=== PATIENT | male | born 1925 | race Caucasian/White ===

== ENCOUNTER 2016-07-18 09:25 | Emergency (ER) | payer MEDICARE, BC ==
--- NOTE | ~2016-07-18 | ER ---
PATIENT'S NAME: [facility] AGE: 89 Y [address] ROOM: [place] [address] LOCATION: [facility] ADMIT DATE: 07/18/2016 ER/Outpatient Report DISCHARGE DATE: 07/18/2016 FAMILY PHYSICIAN: Manan Negron MD ATTENDING PHYSICIAN: Nilesh Skaggs Time of Arrival: Time of Evaluation: Admission date and time documented in the medical record. I saw the patient at 0935 hours. CHIEF COMPLAINT: Right wrist swelling and pain. HISTORY OF PRESENT ILLNESS: The patient is an 89-year-old male, who has had a 3 to 4-day history of swelling in his right wrist that started. He aggravated it more yesterday and now it is quite painful. Denies any fever, chills, or sweats. No recent coughs, colds, or flus. No history of gout. Does have a history of degenerative osteoarthritis. He has no other joint pain or problems. No chest pain, or shortness of breath. No abdominal pain, nausea, vomiting, or diarrhea. HOME MEDICATIONS: See attached medication list. ALLERGIES: NONE. SOCIAL HISTORY: The patient is a nonsmoker since 1951, does chew tobacco. Drinks 1 to 2 beers daily. SIGNIFICANT PAST MEDICAL HISTORY: 1. Tobacco abuse. 2. Peptic ulcer disease. 3. COPD. 4. Hypertension. 5. Diverticulosis. 6. Diverticulitis. 7. Gastroesophageal reflux. 8. Colon cancer. 9. Metastatic prostate cancer. PAST SURGICAL HISTORY: Operations: PATIENT'S NAME: [facility] AGE: 89 Y [address] ROOM: [place] [address] LOCATION: [facility] ADMIT DATE: 07/18/2016 ER/Outpatient Report DISCHARGE DATE: 07/18/2016 FAMILY PHYSICIAN: Manan Ngeron MD ATTENDING PHYSICIAN: Nilesh Skaggs 1. Right colectomy. 2. Hemorrhoidectomy. 3. Appendectomy. 4. Tonsillectomy. REVIEW OF SYSTEMS: All systems reviewed by me are negative with the exception of those discussed in the History of the Present Illness. PHYSICAL EXAMINATION: VITAL SIGNS: Temperature 98.3, tympanic; pulse 75; respiratory rate 24; blood pressure 133/64; and O2 saturation on room air is 92%. MUSCULOSKELETAL: On examination of the right wrist, the wrist is swollen, is not inflamed. Range of motion of his fingers is restricted because of the pain. NEUROLOGIC: Neurovascularly intact. Pulse intact. No open wounds. No abrasions. No ulcerations. Very tender with any type of movement. LABORATORY DATA AND IMAGING STUDIES: X-ray shows calcinosis. No acute fracture or dislocation. We will review x- ray with the radiologist. EMERGENCY DEPARTMENT COURSE: I did give the patient Toradol 60 mg IM in the emergency room, and Solu-Medrol 125 mg IM in the emergency room. Did discuss the patient with Dr. Reece, orthopedic surgeon, who was down here in the emergency department. Dr. Reece did see the patient. See Dr. Reece's dictation. IMPRESSION: Right wrist pain, inflammatory etiology, evidence of chondrocalcinosis of the wrist, no fracture on x-ray. PLAN: The patient was placed in a cock-up wrist splint. Discharged from the emergency room. Ice, elevation, and keep the splint on at all times. Medrol Dosepak take as directed. Continue other present home medications and care. Follow up with Dr. Reece in 2 days or sooner if needed. See personal physician as needed. Discussion ensued with the patient and his son regarding my findings and recommendations, they understand. NILESH SKAGGS MD PATIENT'S NAME: TOBI ZAZUETA [facility] AGE: 89 Y [address] ROOM: [place], [place] [address] LOCATION: ED ADMIT DATE: 07/18/2016 ER/Outpatient Report DISCHARGE DATE: 07/18/2016 FAMILY PHYSICIAN: Manan Negron MD ATTENDING PHYSICIAN: Nilesh Skaggs/modl /[id number] d: 07/18/16 1344 t: 07/19/16 0651, OUTPATIENT REPORT
--- NOTE | ~2016-07-18 | CON ---
PATIENT'S NAME: TOBI SORTO [facility] AGE: 89 Y [address] ROOM: [place] [address] LOCATION: [facility] ADMIT DATE: 07/18/2016 Consultation DISCHARGE DATE: 07/18/2016 FAMILY PHYSICIAN: Manan Negron MD ATTENDING PHYSICIAN: Joao Smith DATE OF CONSULTATION: 07/18/2016 REFERRING PHYSICIAN: Garret Reece MD HISTORY OF PRESENT ILLNESS: Mr. Sorto is an 89-year-old male, who presented to the emergency room with a chief complaint of right wrist pain. Dr. Smith has requested that I consult on the patient. The patient states that he has no history of right wrist pain prior to experiencing the insidious onset of wrist pain and swelling 3 days ago. The patient's son states that "he has continued to do things that he should not do" (including cutting down evergreen trees) despite the wrist pain and swelling. The patient denies history of prior wrist discomfort or dysfunction. He denies history of recent infection of any sort. Pain is localized diffusely (throughout the wrist). He has attempted to control his discomfort with an unspecified topical analgesic (provided by his son). This helped somewhat, but not enough. Pain has continued to escalate despite this. He denies fevers or chills. He denies history of infection of any sort. Despite the fact that there is pain throughout the wrist, his most severe pain is localized to the ulnar aspect of the wrist. ACTIVE MEDICAL PROBLEMS: History of prostate cancer. PRESENT MEDICATIONS: Prednisone (5 mg per day). He states that he is taking this because of his prostate cancer. ACTIVE MEDICAL PROBLEMS: History of peptic ulcer disease. He states that he has no history of associated gastrointestinal hemorrhage. He states that he had a lesion of his right proximal forearm "frozen off" at the [facility] a week and a half ago. He states he developed no evidence of infection at the site of the lesion. He has no history of prior surgery on the right wrist. He is taking no pills for the right wrist. PATIENT'S NAME: TOBI SORTO [facility] AGE: 89 Y [address] ROOM: [place] [address] LOCATION: [facility] ADMIT DATE: 07/18/2016 Consultation DISCHARGE DATE: 07/18/2016 FAMILY PHYSICIAN: Manan Negron MD ATTENDING PHYSICIAN: Joao Smith PHYSICAL EXAMINATION: GENERAL: Alert, oriented, well-hydrated, well-nourished, stoic gentleman, who is accompanied by his son. The patient liberally uses profanity including stating, "it is getting worse just sitting here and (f'ing) talking to you." EXTREMITIES: There are no active skin lesions or masses at the right wrist. There was moderate generalized swelling at the wrist, but no erythema or abnormal warmth. There is significant focal tenderness surrounding the wrist. 2+ radial pulse. Sensation to light touch and capillary refill are normal throughout the right hand. RADIOGRAPHS: Right wrist radiographs demonstrate extensive calcification of the radial artery. There is approximately 50% radial carpal joint space narrowing. There is no fracture. There was extensive chondrocalcinosis at the TFCC region. LABORATORY DATA: Erythrocyte sedimentation rate was ordered, but is not available due to the fact that the lab is not presently able to process this. His C-reactive protein level is moderately elevated (slightly over 2). Uric acid level was reportedly normal. IMPRESSION: Pseudogout attack, right wrist, superimposed upon moderately severe right wrist degenerative joint disease. Potential evolving septic arthritis. RECOMMENDATIONS: Medrol Dosepak, ice, elevation, and immobilization. I have asked for the patient to follow up with me in 48 hours. I have asked that he return to be evaluated sooner if pain continues to escalate despite the above specified intervention. He understands that we would consider aspirating the wrist (and potentially injecting the wrist with cortisone) if symptoms continued to escalate. MD APRIL JERNIGAN/abelino /[id number] d: 07/18/161806 t: 07/22/162221, CONSULTATION REPORT
[~2016-07-18 09:25] MED LIST: CORTEF10 MG PO; CYCLOBENZAPRINE5 MG PO; NORCO 5-325 MG1 TAB PO; PREDNISONE5 MG PO; PROTONIX40 MG PO; SPIRONOLACTONE25 MG PO; ULTRAM50 MG PO; ZYTIGA250 MG PO
[2016-07-18 10:07] LABS: BASOPHIL # 0.1 K/uL (0.0-0.2); EOSINOPHIL # 0.2 K/uL (0.0-0.5); EOSINOPHIL % 2.1 %; HEMATOCRIT 35.2 % (33.0-50.0); HEMOGLOBIN 11.5 g/dL (11.0-16.0); IMMATURE GRANULOCYTE % 0.3 %; LYMPHOCYTE % 34.8 %; MCH 27.8 pg (27.0-34.0); MCHC 32.7 gm/dL (32.0-36.5); MONOCYTE % 8.7 %; MPV 9.4 fl (9.4-12.4); NEUTROPHIL # (ANC) 6.1 K/uL (1.4-9.0); NEUTROPHIL % 53.1 %; NRBC % 0 /100WBC (0-0.00); PLATELET COUNT 204 K/uL (150-450); RBC 4.14 M/uL (3.50-5.50); RDW-CV 16.8 % (11.9-14.6); WBC 11.5 K/uL (4.0-11.0)
[2016-07-18 10:14] LABS: INR - (THERAPEUTIC) 0.95 (0.92-1.07)
[2016-07-18 10:25] LABS: ALBUMIN 2.9 gm/dL (3.5-5.0); ALK PHOS 49 IU/L (33-138); ALT 12 IU/L (12-78); ANION GAP 15.4 (10.0-19.0); AST 13 IU/L (10-40); BLOOD UREA NITROGEN 8 mg/dL (6-24); CALCIUM 7.7 mg/dL (8.5-10.5); CHLORIDE 104 mMol/L (96-110); CO2 24 mMol/L (22-32); CREATININE 0.9 mg/dL (0.6-1.3); ESTIMATED GFR (MDRD EQUATION) > 60; POTASSIUM 3.4 mMol/L (3.7-5.1); SODIUM 140 mMol/L (135-145); TOTAL BILIRUBIN 0.5 mg/dL (0.0-1.5); TOTAL PROTEIN 5.9 g/dL (6.0-8.4)
== END 2016-07-18 11:51 | disposition disaster alternative care site (69) ==
LOC: GMED 09:25
PROVIDERS: Emergency Medicine
PROC: 2W3CX1Z Immobilization of Right Lower Arm using Splint (ICD-10-PCS; principal; 2016-07-18)
DX: M19.031 Primary osteoarthritis, right wrist (principal); M11.231 Other chondrocalcinosis, right wrist; F17.220 Nicotine dependence, chewing tobacco, uncomplicated; C79.82 Secondary malignant neoplasm of genital organs; I10 Essential (primary) hypertension; J44.9 Chronic obstructive pulmonary disease, unspecified; K21.9 Gastro-esophageal reflux disease without esophagitis; Z90.89 Acquired absence of other organs; Z90.49 Acquired absence of other specified parts of digestive tract; Z85.038 Personal history of other malignant neoplasm of large intestine; Z87.11 Personal history of peptic ulcer disease; Z87.19 Personal history of other diseases of the digestive system; Z79.899 Other long term (current) drug therapy
CPT/HCPCS: J1885; J2930

== ENCOUNTER 2016-08-04 22:22 | Emergency (ER) | payer MEDICARE, BC ==
--- NOTE | ~2016-08-04 | ER ---
PATIENT'S NAME: [facility] AGE: 89 Y [address] ROOM: [place] [address] LOCATION: [facility] ADMIT DATE: 08/04/2016 ER/Outpatient Report DISCHARGE DATE: 08/04/2016 FAMILY PHYSICIAN: Manan Negron MD ATTENDING PHYSICIAN: Joao Smith Time of Arrival: Time of Evaluation: Admission date and time documented in the medical record. I saw the patient at 2240 hours. CHIEF COMPLAINT: Left arm pain, shoulder pain. HISTORY OF PRESENT ILLNESS: The patient is an 89-year-old male, who got an injection in his left deltoid muscle, his upper arm about 6 days ago. Since that time he has had pain in the area of injection, radiated up into his shoulder and lateral left neck. No other complaints. No fever, chills, or sweats. No recent coughs, colds, or flus. HOME MEDICATIONS: See attached medication list. ALLERGIES: NONE. SOCIAL HISTORY: Nonsmoker. Does chew tobacco. Drinks alcohol daily. SIGNIFICANT PAST MEDICAL HISTORY: 1. Hypertension. 2. COPD. 3. Peptic ulcer disease. 4. Tobacco and alcohol abuse. 5. Diverticulosis. 6. Diverticulitis. 7. Gastroesophageal reflux. 8. Colon cancer. 9. Metastatic prostate cancer. PAST SURGICAL HISTORY: Operations: 1. Right colectomy. 2. Hemorrhoidectomy. 3. Appendectomy. PATIENT'S NAME: [facility] AGE: 89 Y [address] ROOM: [place] [address] LOCATION: [facility] ADMIT DATE: 08/04/2016 ER/Outpatient Report DISCHARGE DATE: 08/04/2016 FAMILY PHYSICIAN: Manan Negron MD ATTENDING PHYSICIAN: Joao Smith 4. Tonsillectomy. REVIEW OF SYSTEMS: All systems reviewed by me are negative with the exception of those discussed in the History of the Present Illness. PHYSICAL EXAMINATION: VITAL SIGNS: Temperature is 98.8, pulse 89, respiratory rate is 20, blood pressure 144/65, and O2 saturation on room air is 92%. MUSCULOSKELETAL: On examination of the left arm, he has tenderness over the injection site that I can see there is ecchymosis. No swelling. No redness. No red streaking. He has pain throughout the deltoid muscle and pretty much into the left trapezius muscle to the lateral aspect of his left neck. Also, has some tenderness in the posterior scapular area and trapezius muscle extending into the inner aspect of his scapula. Range of motion of the elbow, wrist, and fingers are intact. He has good range of motion, flexion, and extension, but abduction causes pain. NEUROLOGIC: Neurovascularly intact. Pulse intact. No open wounds. IMPRESSION: Left deltoid pain, left trapezius muscle pain. PLAN: The patient was given Valium 5 mg, and morphine 4 mg IM in the emergency room. Discharged to home. Observation. Activity as tolerated. Heat to sore areas x30 minutes 4 times a day. Continue home medications and care. Flexeril 10 mg 3 times a day, #30; and [place] 7.5/325 as needed for pain every 6 hours, #16. Follow up with personal physician in 2 to 3 days. Discussion ensued with the patient concerning my findings and recommendations, he understands. MD LAURA RAYMOND/modl /[id number] d: 08/05/16 0120 t: 08/05/16 1822, OUTPATIENT REPORT
== END 2016-08-04 23:31 | disposition disaster alternative care site (69) ==
LOC: GMED 22:22
DX: M25.512 Pain in left shoulder (principal); I10 Essential (primary) hypertension; J44.9 Chronic obstructive pulmonary disease, unspecified; K57.92 Diverticulitis of intestine, part unspecified, without perforation or abscess without bleeding; K57.90 Diverticulosis of intestine, part unspecified, without perforation or abscess without bleeding; Z90.49 Acquired absence of other specified parts of digestive tract; Z98.890 Other specified postprocedural states
CPT/HCPCS: J2270; J3360

== ENCOUNTER → 2016-09-07 | Outpatient (CLI) | payer MEDICARE, BC ==
[~2016-09-07] MED LIST changes: +ADVIL200 MG PO; +ASPIRIN LO-DOSE81 MG PO; +BENGAY/ICY HOT/30 GM TOP; +BRILINTA90 MG; +CELEBREX200 MG PO; +CIPRO500 MG PO; +COREG 3.1253.125 MG PO; +CRESTOR10 MG; +DYAZIDE 37.5-21 EACH; +FLAGYL250 MG; +FLEXERIL10 MG; +LASIX20 MG PO; +LOPRESSOR25 MG; +PLAVIX75 MG PO; +PRINIVIL (ZESTRI5 MG PO; +VASOTEC2.5 MG
== END | disposition disaster alternative care site (69) ==
LOC: LELM 12:05
PROVIDERS: Family Medicine
DX: R07.9 Chest pain, unspecified (principal); R06.02 Shortness of breath; R11.2 Nausea with vomiting, unspecified

== ENCOUNTER 2016-09-08 12:30 | Inpatient (IN) | payer MEDICARE, BC ==
[~2016-09-08] VITALS: Ht 175.3 cm; Wt 72.6 kg
--- NOTE | ~2016-09-08 | DS ---
PATIENT'S NAME: TOBI ZAZUETA [facility] AGE: 89 Y [address] ROOM: [id number] [place] [address] LOCATION: [facility] ADMIT DATE: 09/08/2016 Discharge Summary DISCHARGE DATE: 09/10/2016 FAMILY PHYSICIAN: Karan Negron MD ATTENDING PHYSICIAN: Karan Negron Tobi entered the hospital after a 24-hour period of time. It took us to convince him that he needed to go to the hospital and was evaluated by Dr. Chao with rising cardiac enzymes and in addition I started him on ciprofloxacin and Flagyl orally to control his sudden onset of acute diverticulitis per CT scan. Tobi also had been suffering from elevated cardiac enzymes for the past 48 hours, however, Tobi was not complaining of chest pain or shortness of breath. May be some arthritic stiffness he says, but not having any trouble with his chest. Despite the fact, we were all very concerned about his rather elevated cardiac enzymes and Dr. Chao felt that a heart cath was definitely in order. So, on the second hospitalized day, Tobi did undergo heart cath and we have had a stent in his circumflex artery. Of course, Tobi did not have any trouble recovering because as he said that he did not have any trouble with his chest before. His abdomen seemed to bother him that lasted during the course of the hospitalization. He began to eat and drink a little, get up and move around, and as usual give the nursing staff more than a difficult time. Upon my arrival on the third day, he was up with his clothes on, on the chair, and proclaim that he is ready to go home, which I believe he was ready to go home. Of course, we will need to continue treating the diverticulitis, which I think according to the breakfast he ate appears that he is gaining on. Should tolerate the heart cath relatively well since according to Tobi he was not having any chest difficulties start with. He will be on I think Brilinta and aspirin and will likely have some statin, which we will carefully adjust. We will see Tobi in the office frequently and we will continue to do so. 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 I said "no" at this weekend. 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 FINAL DIAGNOSES: Acute diverticulitis and also obvious silent myocardial infarction with heart cath and stenting I believe in a circumflex artery. PATIENT'S NAME: TOBI ZAZUETA [facility] AGE: 89 Y [address] ROOM: [id number] [place] [id number] LOCATION: [facility] ADMIT DATE: 09/08/2016 Discharge Summary DISCHARGE DATE: 09/10/2016 FAMILY PHYSICIAN: Karan Negron MD ATTENDING PHYSICIAN: Karan Negron The patient is going home in a great condition and we will follow him frequently in the office. KARAN NEGRON MD JUSAMA/modl /[id number] d: 09/11/161951 t: 09/16/16 1138, DISCHARGE SUMMARY
--- NOTE | ~2016-09-08 | CATH ---
Cardiac Diagnostic + PCI Report Demographics Patient Name CARLITA Graves Gender Male Date of 1925 Age 89 year(s) Patient Number [id number] Date of Study 09/09/2016 Visit Number [id number] Room Number [address] [place] [id number] Ht 175.26 cm Wt 72.12 kg Referring Jamil Bunch MD Primary Physician Physician Performing [facility] Secondary Physician Physician [place] Diagnostic [facility] Assisting Physician Physician [place] Interventional [facility] Physician Tour Operator Physician [place] Findings and Conclusions Diagnostic Findings and Conclusion Two vessel CAD. OM1 occluded 100% with left to left collateral. Proximal Circ 70% calcified. Diagnostic Recommendations PCI of OM1 and Circ Interventional Findings and Conclusion Unable to wire into the OM with three separate wires, wire with balloon support and supercross 90 degree catheter. 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 Interventional Recommendations 1) S/P PCI of proximal Circ with AARON 2) Given advanced age and comorbidities, medical therapy best option for OM branch disease. Procedure Description The patient was brought to the diagnostic cardiac catheterization-EP laboratory in the fasting, non-sedated state. Informed consent was obtained in the written and verbal form after the risks and benefits were explained. The patient had no further questions and agreed to proceed. The planned puncture-incision site(s) were shaved and prepped with ChloraPrep and draped in the usual sterile manner. Conscious sedation, supplemental oxygen, and pain control medications were delivered by a registered nurse under physician guidance. Surface ECG rhythm, blood pressure measurement, and pulse oximetry were monitored throughout the procedure. Arterial access. The access site was infiltrated with lidocaine. The vessel was entered with the Seldinger technique. A sheath was advanced into the vessel and used for catheter placement. Selective left coronary angiography. A catheter was advanced into the left coronary vessel ostium under Fluoroscopic guidance. Contrast was injected by hand. Images were obtained in multiple projections. Selective right coronary angiography. A catheter was advanced into the right coronary vessel ostium under fluoroscopic guidance. Contrast was injected by hand. Images were obtained in multiple projections. Left heart catheterization. A catheter was advanced across the aortic valve to the left ventricle under fluoroscopic guidance. Resting hemodynamics were obtained. Angioplasty and Stent Placement: A guiding catheter was used to intubate the vessel. A 0.14 wire was then used to cross the lesion. A balloon catheter was placed across the lesion and inflated. The balloon catheter was then removed. A Drug Eluting Stent was placed and inflated. Post placement angiograms were performed. Arterial artery hemostasis was achieved. The patient was transferred to a regular nursing floor via cart accompanied by a nurse. The patient left the laboratory in stable condition. Diagnostic Cath Status: Urgent Interventional Cath Status: Urgent Procedure Procedure Type Diagnostic procedure:Angiography:, Coronary Angios w/[facility] PCI procedure:Drug Eluting Coronary Stent:, CFX, PTCA:, CFX Indications: Elevated cardiac enzymes and Non-ST elevation MO. The procedure was explained in detail to the patient. Risks, complications and alternative treatments were reviewed. Written consent was obtained. Medications Reviewed with Patient prior to Procedure. Angiographic Findings Dominance: Left Cardiac Arteries and Lesion Findings LMCA: Normal (0% Stenosis). LAD: Abnormal.The 1st Diag appears abnormal. Lesion on Prox LAD: 30% stenosis . Lesion on Mid LAD: 40% stenosis . Lesion on 1st Diag: Ostial.40% stenosis . LCx: Abnormal.The 1st ob Sofi appears abnormal. Lesion on 1st Ob Sofi: Ostial.100% stenosis reduced to 100%. Pre procedure PAUL 0 flow was noted. Post Procedure PAUL 0 flow was present. The guidewire cross was unsuccessful.The lesion was diagnosed as a high risk lesion.Chronic total occlusion. Comments:Left to left collaterals Devices used - Whisper Wire .014 x 190. Number of passes: 1. Lesion on Prox CX: 70% stenosis 12 mm length reduced to 0%. Pre procedure PAUL III flow was noted. Post Procedure PAUL III flow was present. The guidewire cross was successful.The lesion was diagnosed as a high risk lesion.The lesion was heavily calcified.Culprit lesion. Devices used - Runthrough NS .014 x 180. Number of passes: 1. - Fielder XT 190 cm. Number of passes: 1. - Emerge Balloon 2.0 x 15. 1 inflation(s) to a max pressure of: 16 melany. - Whisper Wire .014 x 190. Number of passes: 1. - Emerge Balloon 3.0 x 15. 3 inflation(s) to a max pressure of: 14 melany. - Promus Premier 3.0 x 20 Stent. 2 inflation(s) to a max pressure of: 14 melany. - NC Emerge Balloon 3.0 x 15. 1 inflation(s) to a max pressure of: 24 melany. RCA: Abnormal.The R PDA appears normal. Lesion on Prox RCA: 30% stenosis . Ramus: Normal (0% Stenosis). Cardiac Collaterals - Goodcollateral flow from the Mid LAD to the 1st Ob Sofi. Coronary Tree Procedure Data Procedure Date Date: 09/09/2016Start: 08:15 AM Entry Locations - Retrograde Percutaneous access was performed through the Right Radial artery (Primary location). A 6 Fr sheath was inserted. Unsuccessful closure attempt was performed using: an R band. Hemostasis was successfully obtained using Mechanical Compression. Closure Comments: 16ml air in band. Procedure Medications Order and Administration + + + + + !Time !Medication !Dosage !Route ! + + + + + !09/09/2016 08:13 !Fentanyl !25 mcg !I.V. ! !AM ! ! ! ! + + + + + !09/09/2016 08:20 !Radial Verapamil !2.5 mg !I.A. ! !AM ! ! ! ! + + + + + !09/09/2016 08:21 !Heparin (ACC_3) ! !I.V. drip ! !AM ! ! ! ! + + + + + !09/09/2016 08:21 !Heparin (ACC_3) !2000 units !I.V. drip ! !AM ! ! ! ! + + + + + !09/09/2016 08:30 !Fentanyl !25 mcg !I.V. ! !AM ! ! ! ! + + + + + !09/09/2016 08:38 !Angiomax (Bivalirudin) !55 mg !I.V. bolus ! !AM !(ACC_5) ! ! ! + + + + + !09/09/2016 08:39 !Angiomax (Bivalirudin) !1.75 mg/kg/hr!I.V. drip ! !AM !(ACC_5) ! ! ! + + + + + !09/09/2016 08:42 !Versed !0.5 mg !I.V. ! !AM ! ! ! ! + + + + + !09/09/2016 08:47 !Oxygen !2 l/min !NC ! !AM ! ! ! ! + + + + + !09/09/2016 08:48 !Oxygen !4 l/min !NC ! !AM ! ! ! ! + + + + + !09/09/2016 09:00 !Oxygen !2 l/min !NC ! !AM ! ! ! ! + + + + + !09/09/2016 09:16 !0.9% NaCl !75 ml/hr !I.V. drip ! !AM ! ! ! ! + + + + + !09/09/2016 09:16 !D5 0.45% NaCl ! !I.V. drip ! !AM ! ! ! ! + + + + + !09/09/2016 09:19 !Oxygen ! !NC ! !AM ! ! ! ! + + + + + !09/09/2016 09:19 !Brilinta (Ticagrelor) !180 mg !P.O. ! !AM !(ACC_20) ! ! ! + + + + + Devices Used - A5 Fr. BS JR 4 Diag. Catheterwas used for:Right coronary angiography. - A5 Fr. BS JL 3.5 Diag. Catheterwas used for:Was not used. - A6 Fr. EBU 3.5 Guide Catheterwas used for:Left coronary angiography. Contrast Material - Isovue [id number] ml Fluoroscopy Time: Diagnostic: 24:12 minutes. Total: 24:12 minutes. Fluoroscopy Dose: Diagnostic: 2803 mGy. Total: 2803 mGy. Estimated Blood Loss: 15 ml. Additional [facility] PCI Information PCI Indication:PCI for high risk Non-STEMI or unstable angina. Medical History Performed Procedures and Imaging Results - No [facility] stress or imaging studies were performed. Allergies - Contrast. - Tomatoes and tomato products. - Other:(pea). Risk Factors The patient risk factors include:hypertension, chronic lung disease, last creatinine: 0.9 mg/dl and creatinine clearance: 56.76 ml/min. Admission Data Admission Date: 09/08/2016 Admission Time: 02:00 PM Admit Source: Emergency department Insurance Payors: Medicare. Admission Medications + +------+------+ + + + + !Medication !Dosage!Times !Last !Last !Administered !Comments ! ! ! !Per !Delivery !Delivery ! ! ! ! ! !Day !Date !Time ! ! ! + +------+------+ + + + + !Aspirin ! ! ! ! !Yes ! ! !(any) ! ! ! ! ! ! ! + +------+------+ + + + + !Beta ! ! ! ! !Yes ! ! !Dayanna ! ! ! ! ! ! ! !(any) ! ! ! ! ! ! ! + +------+------+ + + + + Clinical Evaluation Leading to Procedure - The patient's CAD presentation was assessed as: Non-STEMI. - The patient's anginal syndrome during the past two weeks was assessed as: Class IV according to the [place] Cardiovascular Society Classification System (CCS). Anti-anginal medications were prescribed during the past two weeks. The medication is: Beta Blockers. - The patient has been in a state of heart failure within the past two weeks. - The patient's heart failure status was assessed as NYHA Class II. Hemodynamics Condition: Rest O2 Consumption: Estimated: 216.78Heart Rate: 78 bpm Pressures (mmHg) +-----+ + !Site !Pressure ! +-----+ + !LV !122/5 ,11 ! +-----+ + !LV !124/6 ,16 ! +-----+ + !AO !119/45 (77) ! +-----+ + !LV !118/7 ,13 ! +-----+ + Valve Gradients and Areas + +---------+---------+---------+ +---------+ + !Valve !Peak !Mean !Area !Index !Flow !Source ! + +---------+---------+---------+ +---------+ + !Aortic !6 !11 ! ! ! ! ! + +---------+---------+---------+ +---------+ + !Aortic !6 !11 ! ! ! ! ! + +---------+---------+---------+ +---------+ + Shunts Oxygen Values O2 Capacity 137.36 O2 Consumption 216.78 Discharge Data Discharge Date: 09/10/2016 Hospital Status: Inpatient Signatures dtt: ANN [place] dtd: 09/09/16 0815 Physician Self Edit
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
--- NOTE | ~2016-09-08 | HP ---
PATIENT'S NAME: TOBI SORTO [facility] AGE: 89 Y [address] ROOM: [id number] [place], [place] [address] LOCATION: GPCU ADMIT DATE: 09/08/2016 History & Physical DISCHARGE DATE: 09/10/2016 FAMILY PHYSICIAN: Manan Negron MD ATTENDING PHYSICIAN: Manan Negron CORRECTED COPY: ACCOUNT NUMBER. 10/14/2016 - BC. DATE OF SERVICE: HISTORY OF PRESENT ILLNESS: Tobi was admitted to the hospital on 09/10 after having a 36-hour episode of shortness of breath and some abdominal discomfort. The abdominal discomfort was diagnosed with a CT scan of him having acute diverticulitis and the chest pain. The shortness of breath was evaluated with cardiac enzymes at [facility] on the with obvious elevation of his cardiac enzymes. Tobi returned to the Clinic the next day after we were unable to locate him the first afternoon when we noted his enzymes were going up. I finally got a hold of him in the evening, and he stated that he did not have any chest problems and that his abdomen was feeling better. I told him that I was very concerned, and then I wanted to see him again in the morning. So, the next morning, he came to the Clinic. We re-evaluated his cardiac enzymes and they were continuing to go up. I indicated to him that he did have acute diverticulitis, which he has had before. I was glad that he was feeling better, but because of the difficulties with the cardiac enzymes, without frightening him, I told him that it was best for him to be in the hospital. So, we are admitting him finally at this time, approximately 24 hours after he first presented with the symptoms, but of course this time, he says he does not have any chest pain and does not have any shortness of breath. No cough. He says he feels good. However, with the enzymes rising, he will certainly need evaluation. 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 I always referred to him as the godfather of [place] because he has a large family related to a large number of individuals in the neighborhood, and he certainly does his best to be a great ambassador for the area. He is an extremely energetic fellow whom I always enjoy seeing. He has a great work ethic. 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 Tobi is one of my favorite patients, and I like his attitude. In addition to the above mentioned things, Tobi has been dealing with prostate cancer for approximately the last five or six years, and seems somehow not to have limited his lifestyle or his length to any degree. Last year, he had an abdominal episode, and we found colon cancer which was resected and supposedly "it was completely resected." We have followed up on this frequently, and we have not found any recurrence. Tobi goes on about his life without worrying PATIENT'S NAME: TOBI SORTO [facility] AGE: 89 Y [address] ROOM: [place] [address] [facility] ADMIT DATE: 09/08/2016 History & Physical DISCHARGE DATE: 09/10/2016 FAMILY PHYSICIAN: Manan Negron MD ATTENDING PHYSICIAN: Manan Negron about either one. CURRENT MEDICATIONS: As per the chart. SOCIAL HISTORY: Of course, Tobi lives at home, and the probably biggest concern I have is him being in charge of his own nutrition. I think that he eats a lot of frozen pizzas and cereal, and occasionally a beer too in the evening. He generally enjoys himself, and enjoys his sons who live in the farmyard and then also a son who lives nearby in [place]. He has a daughter I think also in [place], all of whom keep in touch, but on the other hand, they cannot allow him to do as he pleases which that is the only way it would work. He, in the past, has gone to the [place] for some things, but in the last couple of years, I have noticed that most of his medical care centers are in my office and/or [place] physicians. PHYSICAL EXAMINATION: VITAL SIGNS: Tobi entered the hospital at this time with vital signs of weight of 167, O2 saturations of 94, temperature of 98, blood pressure of 92/40, and pulse of 100. GENERAL: He is still eating and drinking at this particular time, not complaining of any chest discomfort, although he says he has some abdominal discomfort. HEENT: Head: Inspection reveals a normocephalic male with rather dark skin. He has still some grayish-white hair covering his entire head. He does not wear glasses. Dentition is rather poor, although it is his own. Eyes: Extraocular muscles are intact. Pupils are equally round and reactive to light. Nasal mucosa was healthy pink in appearance. Tympanic membranes were viewed unobstructed. Posterior pharynx was clear. As noted, dentition is poor. Oral cavity was clear. NECK: The neck region, his carotids are auscultated and transmitted, but no bruits were noted. There are no apparent masses present on palpation. LUNGS: On auscultation, the patient had some scattered wheezing especially in the bases and also some rales on the left base. CARDIAC: Heart sounds are irregularly irregular, has a probable systolic murmur. Heart rate is elevated at 100. ABDOMEN: The patient's abdomen is flat in contour. He has a few bowel sounds. He is tender more than anything in the lower confines of his abdomen, and perhaps, the left upper quadrant to some extent. PELVIC: Not examined. RECTAL: Not examined. EXTREMITIES: No excessive peripheral circulation. Extremities are warm and dry. PATIENT'S NAME: TOBI SORTO [facility] AGE: 89 Y [address] ROOM: [address] [address] [facility] ADMIT DATE: 09/08/2016 History & Physical DISCHARGE DATE: 09/10/2016 FAMILY PHYSICIAN: Manan Negron MD ATTENDING PHYSICIAN: Manan Negron IMPRESSION: The impression is that of rising cardiac enzymes, suspect myocardial infarction and acute diverticulitis. PLAN: To continue IV antibiotics for his acute diverticulitis. I have involved Dr. Chao for Tobi's cardiac condition, and I assume that we will get an echo and probably a heart catheterization soon with possible stenting procedure. Appropriate fluid therapy, adjustment of his current medications, bedrest, and appropriate hydration and appropriate bowel care with a non-roughage diet and keep it soft for now. We will monitor his other problems as time goes along. The good news is that Tobi does not appear to be in any acute danger, even though his cardiac enzymes are significantly rising. MD THADDEUS HENDRICKSON/abelino /[id number] CORRECTED COPY: ACCOUNT NUMBER. 10/14/2016 - BC. D: [id number] T: [id number] HISTORY & PHYSICAL
--- NOTE | ~2016-09-08 | ECHO ---
Transthoracic Echocardiography Report (TTE) Demographics Patient Name TOBI ZAZUETA Date of Study 09/08/2016 Patient Number [id number] Visit Number [id number] Date of 1925 Room Number G6328 Accession Number [id number] Gender Male Age 89 year(s) Referring Jamil Bunch MD Dog Warden Kalani Joya RVT, Physician RDEZRA Physician Interpreting Horacio Juarez Sales Training Coordinator Physician MD Supervising Ordering Physician Horacio Juarez MD/MLP Nurse Stress Fibrous Wallboard Inspector Conclusions Contractility Score Summary Normal Left Ventricular contractility was noted. Summary Technically difficult exam. Normal LV/RV size and systolic function. The estimated left ventricular ejection fraction is 55-60%. Mild concentric left ventricular hypertrophy. Diastolic assessment reveals Grade I diastolic dysfunction. The right atrium is mildly dilated. No significant valvular abnormalities. Procedure Type of Study TTE procedure:2D Echocardiogram. Procedure Date Date: 09/08/2016 Start: 01:04 PM Study Location: Inpatient Portable Technical Quality: Limited visualization due to poor acoustical window. Indications:Chest pain and elevated cardiac enzymes. Appropriate Use Criteria: 8 Patient Status: STAT HR: 92 bpm BP: 136/65 mmHg M-Mode/2D Measurements LV Diastolic Dimension: 4.82 cm LV Systolic Dimension: 3.17 cm LV Septum Diastolic: 1.2 cm LV PW Diastolic: 1.13 cm AO Root Dimension: 2.8 cm Cardiac Output: 3.78 l/min AV Cusp Separation: 1.4 cm RV Diastolic Dimension: 3.03 cm LA volume: 53 ml LVOT: 2.2 cm RV Base: 3.83 cm LVOT VTI: 10.8 cm RV Mid: 3.18 cm LV Stroke volume: 41.03 ml TAPSE: 3 cm TDI-S': 10.4 cm/s Doppler Measurements AV Peak Velocity: 1.02 m/s MV Peak E-Wave: 0.52 m/s AV Peak Gradient: 4.16 mmHg MV Peak A-Wave: 0.76 m/s AV Mean Gradient: 3 mmHg MV E/A Ratio: 0.69 LVOT Peak Velocity: 0.55 m/s MV P1/2t: 71 msec TR Gradient:29.16 mmHg PV Peak Velocity: 0.96 m/s Estimated RAP:5 mmHg PV Peak Gradient: 3.66 mmHg Estimated RVSP: 34 mmHg Estimated PASP: 34.16 mmHg E' Septal Velocity: 0.04 m/s A' Septal Velocity: 0.09 m/s E' Lateral Velocity: 0.06 m/s A' Lateral Velocity: 0.09 m/s Findings Left Ventricle Mild concentric left ventricular hypertrophy. Diastolic assessment reveals Grade I diastolic dysfunction. Right Ventricle Normal right ventricle structure and function. Left Atrium Normal left atrial size. There is no evidence of patent foramen ovale or atrial septal defect by color Doppler. Right Atrium The right atrium is mildly dilated. No subcostal images to evaluate IVC. Mitral Valve Normal mitral valve structure and function. Aortic Valve Normal aortic valve structure and function. Tricuspid Valve Normal appearing tricuspid valve. Trivial tricuspid regurgitation by color Doppler. Pulmonic Valve Normal pulmonic valve structure and function. Pericardial Effusion No evidence of pericardial effusion. Epicardial fat pad noted. Miscellaneous Visualized portions of the aortic root and ascending aorta appear normal in size. Pleural Effusion No evidence of pleural effusion. Contractility Score LV regional wall motion:(0-Non visualized 1-Normal 2-Hypokinesis 3-Akinesis 4-Dyskinesis 5-Aneurysm) Signature dtt: ANITA DEL VALLE dtd: 09/08/16 1304 Physician Self Edit
[~2016-09-08 12:30] MED LIST changes: -ADVIL200 MG PO; -ASPIRIN LO-DOSE81 MG PO; -BENGAY/ICY HOT/30 GM TOP; -BRILINTA90 MG; -CELEBREX200 MG PO; -CIPRO500 MG PO; -COREG 3.1253.125 MG PO; -CRESTOR10 MG; -DYAZIDE 37.5-21 EACH; -FLAGYL250 MG; -FLEXERIL10 MG; -LASIX20 MG PO; -LOPRESSOR25 MG; -PLAVIX75 MG PO; -PRINIVIL (ZESTRI5 MG PO; -VASOTEC2.5 MG
[2016-09-08 13:40] LABS: BASOPHIL # 0.1 K/uL (0.0-0.2); BASOPHIL % 0.4 %; EOSINOPHIL % 0.2 %; HEMATOCRIT 34.7 % (33.0-50.0); HEMOGLOBIN 11.5 g/dL (11.0-16.0); IMMATURE GRANULOCYTE # 0.1 K/uL (0.0-0.3); IMMATURE GRANULOCYTE % 0.4 %; LYMPHOCYTE # 2.1 K/uL (0.8-4.0); LYMPHOCYTE % 13.2 %; MCH 28.2 pg (27.0-34.0); MCHC 33.1 gm/dL (32.0-36.5); MONOCYTE # 1.4 K/uL (0.0-1.0); MONOCYTE % 9.1 %; NEUTROPHIL # (ANC) 11.9 K/uL (1.4-9.0); NEUTROPHIL % 76.7 %; NRBC % 0 /100WBC (0-0.00); PLATELET COUNT 182 K/uL (150-450); RBC 4.08 M/uL (3.50-5.50); RDW-CV 16.5 % (11.9-14.6); WBC 15.6 K/uL (4.0-11.0)
[2016-09-08 14:02] LABS: ALBUMIN 2.7 gm/dL (3.5-5.0); ALK PHOS 52 IU/L (33-138); ALT 21 IU/L (12-78); ANION GAP 8.6 (10.0-19.0); AST 95 IU/L (10-40); BLOOD UREA NITROGEN 12 mg/dL (6-24); CALCIUM 7.9 mg/dL (8.5-10.5); CHLORIDE 106 mMol/L (96-110); CO2 27 mMol/L (22-32); CPK 504 IU/L (35-332); ESTIMATED GFR (MDRD EQUATION) > 60; POTASSIUM 3.6 mMol/L (3.7-5.1); SODIUM 138 mMol/L (135-145); TOTAL PROTEIN 6.1 g/dL (6.0-8.4)
[2016-09-08 14:07] LABS: INR - (THERAPEUTIC) 0.98 (0.92-1.07); PROTIME 10.3 SECONDS (9.8-11.4)
[2016-09-08 14:08] LABS: TOTAL BILIRUBIN 0.8 mg/dL (0.0-1.5)
[2016-09-08] MEDS ORDERED: ADVIL200 MG PO (15:05)
[2016-09-08 18:55] LABS: BILIRUBIN URINE NEGATIVE (NEGATIVE); BLOOD URINE NEGATIVE /UL (NEGATIVE); COLOR URINE YELLOW (YELLOW); GLUCOSE URINE NEGATIVE (NEGATIVE); KETONE URINE NEGATIVE (NEGATIVE); LEUKOCYTES URINE NEGATIVE /UL (NEGATIVE); NITRITE URINE NEGATIVE (NEGATIVE); PROTEIN URINE 30 mg/dL (NEGATIVE); TURBIDITY URINE CLEAR (CLEAR); UROBILINOGEN URINE 1 mg/dL (NORMAL)
[2016-09-08 19:06] LABS: BACTERIA URINE FEW (NEGATIVE); EPITHELIAL URINE 0-2 #/HPF (NEGATIVE); HYALINE CAST URINE 0-2 #/LPF (NEGATIVE); MUCUS URINE 1+ (NEGATIVE); RBC URINE NEGATIVE #/HPF (NEGATIVE); WBC URINE NEGATIVE #/HPF (NEGATIVE)
[2016-09-09 04:28] LABS: HEMATOCRIT 30.6 % (33.0-50.0); HEMOGLOBIN 10.1 g/dL (11.0-16.0); MCH 27.7 pg (27.0-34.0); MCV 83.8 fl (83.0-98.0); MPV 9.8 fl (9.4-12.4); PLATELET COUNT 176 K/uL (150-450); RBC 3.65 M/uL (3.50-5.50); RDW-CV 16.1 % (11.9-14.6); WBC 12.4 K/uL (4.0-11.0)
[2016-09-09 04:31] LABS: EOSINOPHIL # 0.1 K/uL (0.0-0.5); LYMPHOCYTE % 24.3 %; MONOCYTE # 1.1 K/uL (0.0-1.0); MONOCYTE % 9.1 %; NEUTROPHIL % 64.6 %; NRBC % 0 /100WBC (0-0.00)
[2016-09-09 04:32] LABS: BASOPHIL # 0.1 K/uL (0.0-0.2); BASOPHIL % 0.6 %; EOSINOPHIL % 1.1 %; IMMATURE GRANULOCYTE % 0.3 %
[2016-09-09 04:43] LABS: INR - (THERAPEUTIC) 1.01 (0.92-1.07); PROTIME 10.6 SECONDS (9.8-11.4); PTT 53 SECONDS (25-32)
[2016-09-09 04:49] LABS: ALBUMIN 2.2 gm/dL (3.5-5.0); ALK PHOS 49 IU/L (33-138); ALT 18 IU/L (12-78); ANION GAP 8.4 (10.0-19.0); AST 55 IU/L (10-40); BLOOD UREA NITROGEN 9 mg/dL (6-24); CHLORIDE 102 mMol/L (96-110); CO2 28 mMol/L (22-32); CREATININE 0.9 mg/dL (0.6-1.3); ESTIMATED GFR (MDRD EQUATION) > 60; POTASSIUM 3.4 mMol/L (3.7-5.1); SODIUM 135 mMol/L (135-145); TOTAL BILIRUBIN 0.8 mg/dL (0.0-1.5); TOTAL PROTEIN 5.4 g/dL (6.0-8.4)
[2016-09-10 05:01] LABS: BASOPHIL % 0.1 %; HEMATOCRIT 32.2 % (33.0-50.0); HEMOGLOBIN 10.9 g/dL (11.0-16.0); IMMATURE GRANULOCYTE # 0.1 K/uL (0.0-0.3); IMMATURE GRANULOCYTE % 0.5 %; LYMPHOCYTE # 1.2 K/uL (0.8-4.0); LYMPHOCYTE % 10.5 %; MCH 28.3 pg (27.0-34.0); MCHC 33.9 gm/dL (32.0-36.5); MCV 83.6 fl (83.0-98.0); MONOCYTE # 0.5 K/uL (0.0-1.0); MONOCYTE % 4.5 %; NEUTROPHIL # (ANC) 9.3 K/uL (1.4-9.0); NEUTROPHIL % 84.4 %; NRBC % 0 /100WBC (0-0.00); PLATELET COUNT 237 K/uL (150-450); RBC 3.85 M/uL (3.50-5.50); RDW-CV 15.9 % (11.9-14.6)
[2016-09-10 05:23] LABS: ALBUMIN 2.4 gm/dL (3.5-5.0); ALK PHOS 53 IU/L (33-138); ALT 17 IU/L (12-78); ANION GAP 11.6 (10.0-19.0); AST 30 IU/L (10-40); BLOOD UREA NITROGEN 17 mg/dL (6-24); CALCIUM 7.4 mg/dL (8.5-10.5); CHLORIDE 105 mMol/L (96-110); CO2 26 mMol/L (22-32); ESTIMATED GFR (MDRD EQUATION) > 60; POTASSIUM 3.6 mMol/L (3.7-5.1); SODIUM 139 mMol/L (135-145); TOTAL BILIRUBIN 0.4 mg/dL (0.0-1.5); TOTAL PROTEIN 5.8 g/dL (6.0-8.4)
[2016-09-10] MEDS ORDERED: ASPIRIN LO-DOSE81 MG PO (09:42)
[2016-09-10] MEDS ORDERED: CIPRO500 MG PO (09:42)
[2016-09-10] MEDS ORDERED: VASOTEC2.5 MG (09:45)
[2016-09-10] MEDS ORDERED: FLAGYL250 MG (09:54)
[2016-09-10] MEDS ORDERED: LOPRESSOR25 MG (09:54)
[2016-09-10] MEDS ORDERED: BRILINTA90 MG (09:55)
[2016-09-10] MEDS ORDERED: CRESTOR10 MG (10:00)
== END 2016-09-10 10:45 | disposition disaster alternative care site (69) | DRG 246 ==
LOC: GPCU 12:30 → EDSTATUS 12:30 → GPCU 14:00
PROVIDERS: Internal Medicine Interventional Cardiology; Nurse Practitioner; ADMIT Family Medicine
PROC: 4A023N7 Measurement of Cardiac Sampling and Pressure, Left Heart, Percutaneous Approach (ICD-10-PCS; principal; 2016-09-09)
PROC: B2111ZZ Fluoroscopy of Multiple Coronary Arteries using Low Osmolar Contrast (ICD-10-PCS; principal; 2016-09-09)
PROC: 027135Z Dilation of Coronary Artery, Two Arteries with Two Drug-eluting Intraluminal Devices, Percutaneous Approach (ICD-10-PCS; principal; 2016-09-09)
DX: I21.4 Non-ST elevation (NSTEMI) myocardial infarction (principal); I50.33 Acute on chronic diastolic (congestive) heart failure; E87.70 Fluid overload, unspecified; K57.92 Diverticulitis of intestine, part unspecified, without perforation or abscess without bleeding; C61 Malignant neoplasm of prostate
CPT/HCPCS: C1725; C1769; C1874; C1887; C9600; J0583; J1200; J1644; J1940; J2250; J2930; J3010; J7030; J7060

== ENCOUNTER → 2016-09-08 | Outpatient (CLI) | payer MEDICARE, BC | END | disposition disaster alternative care site (69) | LOC: GLAB 10:00 → GRAD 10:30 → GLAB 10:33 | PROVIDERS: Family Medicine | DX: C61 Malignant neoplasm of prostate (principal); C79.51 Secondary malignant neoplasm of bone; J92.9 Pleural plaque without asbestos; K57.92 Diverticulitis of intestine, part unspecified, without perforation or abscess without bleeding; R10.9 Unspecified abdominal pain; R19.7 Diarrhea, unspecified; R79.89 Other specified abnormal findings of blood chemistry ==

== ENCOUNTER 2016-09-18 05:52 | Emergency (ER) | payer MEDICARE, BC ==
--- NOTE | ~2016-09-18 | ER ---
[facility] AGE: 89 Y [address] ROOM: [place] [address] LOCATION: [facility] ADMIT DATE: 09/18/2016 ER/Outpatient Report DISCHARGE DATE: 09/18/2016 FAMILY PHYSICIAN: Manan Negron MD ATTENDING PHYSICIAN: Joao Smith Time of arrival: 0552 hours. Time of evaluation: 0559 hours. CHIEF COMPLAINT: Left neck pain. HISTORY OF PRESENT ILLNESS: The patient is an 89-year-old male who presents to the emergency department today with a chief complaint of left neck pain. The patient reports that he turned his head yesterday and had some slight pain, however, the pain got worse last night. Denies any other injuries to the neck. No other changes in activity. No fevers or chills. No nausea or vomiting. No diarrhea or constipation. The pain does go up into the back of his head. The patient denies any chest pain. He does report he has had some shortness of breath with exertion ever since he had a stent last week. The patient reports that he saw Dr. Negron who started him on some Lasix. PAST MEDICAL HISTORY: Coronary artery disease, recent [place], colon cancer, arthritis, back pain, diverticulitis. PAST SURGICAL HISTORY: Heart stent on , colectomy, appendectomy, tonsil and adenoids, cataracts. SOCIAL HISTORY: The patient quit smoking in 1951, uses chewing tobacco. Denies any alcohol or illicit drug use. ALLERGIES: TO CONTRAST DYE AND FOOD ALLERGIES TO . MEDICATIONS: Please see list. PRIMARY CARE DOCTOR: Dr. Jan Negron. REVIEW OF SYSTEMS: [facility]'S [facility]: [facility] AGE: 89 Y [address] ROOM: [place], [place] [address] LOCATION: [facility] ADMIT DATE: 09/18/2016 ER/Outpatient Report DISCHARGE DATE: 09/18/2016 FAMILY PHYSICIAN: Manan Negron MD ATTENDING PHYSICIAN: Joao Smith All systems are reviewed by myself, are negative with the exception of those discussed in HPI and past medical history. PHYSICAL EXAMINATION: VITAL SIGNS: Weight 77.9 kg. Blood pressure 133/81, pulse 85, respiratory rate 24, temperature 97.1, oxygen saturation 95% on room air. GENERAL: The patient is an 89-year-old male, appears stated age, in moderate acute distress having pain in is neck. HEENT: Normocephalic, atraumatic. Pupils are equal, round, and reactive to light. Oropharynx is clear. NECK: Supple. He has primarily tenderness to palpation of left paraspinal musculature. There is no midline tenderness to palpation. CARDIOVASCULAR: Regular rate and rhythm. No murmurs, rubs, or gallops. LUNGS: Clear to auscultation bilaterally. No wheezes, rales, or rhonchi. ABDOMEN: Soft, nontender, and nondistended. No rebound, rigidity, or guarding. MUSCULOSKELETAL: The patient moves all 4 extremities. SKIN: 1+ pretibial edema in bilateral lower extremities. LABORATORY DATA AND X-RAYS: CBC: White blood cell count 16.3, otherwise normal. Coags are normal. CMP is normal. LFTs normal. Magnesium is normal. CK-MB is normal. Troponin 0.426. EKG is obtained, is interpreted by myself at 0648. It shows sinus rhythm with a rate of 73, normal axis, CO interval 229, otherwise normal interval Q-waves, V1, and V2, no ST elevation or ST depression. There is no significant change from 09/10/2016; proBNP is 2129. Chest x-ray shows no acute process. CT scan of the brain is obtained. I have discussed results with the radiologist; it shows atrophy which is stable. CT scan of the C- spine was also obtained. I have discussed results with the radiologist; it shows no acute process, no fractures, stable over the past year, extensive degenerative changes, bone sclerosis which is unchanged, and foraminal stenosis. IMPRESSION: 1. Acute cervical neck strain. 2. Dyspnea. 3. Initial visit. EMERGENCY DEPARTMENT COURSE: The patient was brought back to the examination room. Seen and evaluated by myself. IV is established. Laboratory analysis and imaging are obtained as described above. The patient's 2 hour cardiac enzymes are trending downward. I have given the patient multiple aliquots of Dilaudid as well as Valium for pain and muscle relaxation. The patient has resulted in improvement of the patient's symptoms. I have discussed results with the patient and his son who PATIENT'S NAME: TOBI ZAZUETA [facility] AGE: 89 Y [address] ROOM: [place] [address] LOCATION: [facility] ADMIT DATE: 09/18/2016 ER/Outpatient Report DISCHARGE DATE: 09/18/2016 FAMILY PHYSICIAN: Manan Negron MD ATTENDING PHYSICIAN: Joao Smith is at the bedside. We have discussed possible admission for pain control versus outpatient pain control. The patient would prefer to go home and try pain medicine at home. Son is agreeable. I have contacted Dr. Negron. He does report that he will call in a prescription for Flexeril and tramadol to [facility]. He has requested we give the patient some extra Lasix with his dyspnea on exertion. He is given 20 mg of Lasix IV. Dr. Negron requests that patient follows up with him on Tuesday for re-evaluation. 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 I have discussed with the son and the patient that if things get worse, any other concerns, that the pain is not controlled, he is to return to the emergency department as soon as possible. The patient is agreeable, son is agreeable. They are without further questions at this time. DISPOSITION: The patient is discharged home in good condition. DO CORY JAUREGUI/vincel /[id number] d: 09/18/16 1358 t: 09/22/16 0639, OUTPATIENT REPORT
[~2016-09-18 05:52] MED LIST changes: +ADVIL200 MG PO; +ASPIRIN LO-DOSE81 MG PO; +BRILINTA90 MG; +CIPRO500 MG PO; +CRESTOR10 MG; +FLAGYL250 MG; +LOPRESSOR25 MG; +VASOTEC2.5 MG
[2016-09-18 06:30] LABS: BASOPHIL # 0.1 K/uL (0.0-0.2); BASOPHIL % 0.6 %; EOSINOPHIL # 0.3 K/uL (0.0-0.5); HEMATOCRIT 33.7 % (33.0-50.0); HEMOGLOBIN 11.5 g/dL (11.0-16.0); IMMATURE GRANULOCYTE # 0.2 K/uL (0.0-0.3); LYMPHOCYTE # 4.7 K/uL (0.8-4.0); MCH 28.3 pg (27.0-34.0); MCHC 34.1 gm/dL (32.0-36.5); MCV 82.8 fl (83.0-98.0); MONOCYTE # 1.3 K/uL (0.0-1.0); MONOCYTE % 7.7 %; MPV 8.9 fl (9.4-12.4); NEUTROPHIL # (ANC) 9.7 K/uL (1.4-9.0); NEUTROPHIL % 59.7 %; NRBC % 0 /100WBC (0-0.00); RBC 4.07 M/uL (3.50-5.50); RDW-CV 16.2 % (11.9-14.6)
[2016-09-18 06:34] LABS: PLATELET COUNT 425 K/uL (150-450); WBC 16.3 K/uL (4.0-11.0)
[2016-09-18 06:41] LABS: PROTIME 10.5 SECONDS (9.8-11.4)
[2016-09-18 06:42] LABS: PTT 30 SECONDS (25-32)
[2016-09-18 06:51] LABS: ALBUMIN 2.6 gm/dL (3.5-5.0); ALK PHOS 45 IU/L (33-138); ALT 11 IU/L (12-78); ANION GAP 11.4 (10.0-19.0); AST 14 IU/L (10-40); BLOOD UREA NITROGEN 9 mg/dL (6-24); CALCIUM 7.8 mg/dL (8.5-10.5); CHLORIDE 103 mMol/L (96-110); CO2 25 mMol/L (22-32); CPK 69 IU/L (35-332); CREATININE 0.9 mg/dL (0.6-1.3); ESTIMATED GFR (MDRD EQUATION) > 60; MAGNESIUM 1.8 mg/dL (1.8-2.6); POTASSIUM 3.4 mMol/L (3.7-5.1); SODIUM 136 mMol/L (135-145); TOTAL BILIRUBIN 0.4 mg/dL (0.0-1.5); TOTAL PROTEIN 6.4 g/dL (6.0-8.4)
[2016-09-19] MEDS ORDERED: FLEXERIL10 MG (21:54)
[2016-09-19] MEDS ORDERED: ULTRAM50 MG PO (21:55)
[2016-09-19] MEDS ORDERED: DYAZIDE 37.5-21 EACH (21:57)
== END 2016-09-18 08:52 | disposition disaster alternative care site (69) ==
LOC: GMED 05:52
PROVIDERS: Emergency Medicine
DX: S16.1XXA Strain of muscle, fascia and tendon at neck level, initial encounter (principal); R06.00 Dyspnea, unspecified; R06.02 Shortness of breath; F17.220 Nicotine dependence, chewing tobacco, uncomplicated; I25.10 Atherosclerotic heart disease of native coronary artery without angina pectoris; K57.92 Diverticulitis of intestine, part unspecified, without perforation or abscess without bleeding; M19.079 Primary osteoarthritis, unspecified ankle and foot; Z90.49 Acquired absence of other specified parts of digestive tract; Z98.890 Other specified postprocedural states; Z96.89 Presence of other specified functional implants; Z91.041 Radiographic dye allergy status; Z85.038 Personal history of other malignant neoplasm of large intestine; Z79.899 Other long term (current) drug therapy; X50.9XXA Other and unspecified overexertion or strenuous movements or postures, initial encounter
CPT/HCPCS: J1170; J1940; J3360

== ENCOUNTER 2016-09-19 11:03 | Inpatient (IN) | payer MEDICARE, BC, OTHER ==
[~2016-09-19] VITALS: Ht 175.3 cm; Wt 75.5 kg
--- NOTE | ~2016-09-19 | ECHO ---
Transesophageal Echocardiography Report (CROW) Demographics Patient Name TOBI ZAZUETA Date of Study 09/20/2016 Patient Number [id number] Visit Number [id number] Date of 1925 Room Number G6327 Accession Number [id number] Gender Male Age 89 year(s) Referring Jamil Bunch MD Outside Sales Account Representative Kalani Joya RVT, Physician RDCS Physician Interpreting Jennifer Reyna Supervisor Mapping Physician Hermelinda LAKE Supervising Ordering Physician Jennifer Reyna MD/ROBY Shen MD Nurse Stress Reverse Unit Operator Conclusions Summary No vegetations are seen. Estimated EF: 35 %. Mild tricuspid regurgitation . Moderate pulmonary hypertension. Estimated PA systolic pressure: 52 mmHg. Moderate pulmonic valve regurgitation. Procedure Type of Study CROW procedure Procedure Date Date: 09/20/2016 Start: 03:32 PM Study Location: Inpatient Portable Technical Quality: Good visualization Indications:Elevated Troponin. Appropriate Use Criteria: 8 Patient Status: Routine Rhythm: NSR HR: 81 bpm BP: 103/50 mmHg CROW Performed By: the attending and the tool and die maker apprentice Allergies - Contrast. - Tomatoes and tomato products. - Other:(pea). Findings Left Ventricle Estimated EF: 35 %. Right Ventricle Normal right ventricular size and function. Left Atrium Normal left atrial size. Right Atrium The right atrium is not dilated. No evidence of patent foramen ovale by Doppler. Mitral Valve No significant mitral regurgitation. Aortic Valve Mildly sclerotic trileaflet aortic valve. Tricuspid Valve Mild tricuspid regurgitation . Moderate pulmonary hypertension. Estimated PA systolic pressure: 52 mmHg. Pulmonic Valve Moderate pulmonic valve regurgitation. Pericardial Effusion No pericardial effusion. Miscellaneous No significant thoracic aorta atherosclerosis. Signature dtt: Mathew Rodriguez dtd: 09/20/16 1532 Physician Self Edit
--- NOTE | ~2016-09-19 | ER ---
[facility] 89 Y [address] ROOM: [place] [id number] LOCATION: GPCU ADMIT DATE: 09/19/2016 ER/Outpatient Report DISCHARGE DATE: FAMILY PHYSICIAN: Manan Negron MD ATTENDING PHYSICIAN: Manan Negron TIME SEEN: Seen at 11:15. CHIEF COMPLAINT: Severe right wrist pain and swelling. HISTORY OF PRESENT ILLNESS: The patient is an 89-year-old, white male, patient of Dr. Manan Negron's. The patient presents complaining of swelling and pain involving both wrists. The pain and swelling started this morning after he had gotten out of bed. The patient was seen yesterday in the emergency room with left-sided neck pain. The patient's CT of his head and C-spine showed no acute injuries. The patient was put on Ultram and Flexeril and was to follow up with Dr. Negron. The patient is somewhat of a poor historian. However, he denies any fever or chills. ALLERGIES: SEE COPIED LIST, DOES INCLUDE SOME ENVIRONMENTAL ALLERGIES. CURRENT MEDICATIONS: Include Dyazide, Flagyl, aspirin, tramadol, Flexeril, and Cipro. PAST MEDICAL HISTORY: Hypertension, coronary artery disease, recent MN within the last couple weeks requiring a stent placement. SOCIAL HISTORY: Evidently lives alone. No recent use of tobacco or alcohol. REVIEW OF SYSTEMS: HEAD AND EENT: Denies headache, still continues to have some neck pain. RESPIRATORY: He has been short of breath since his stent placement. Denies cough. CARDIOVASCULAR: No chest pain. Denies any heart palpitations. GASTROINTESTINAL: No complaints of vomiting or diarrhea. MUSCULOSKELETAL: Includes, pain bilateral wrists with swelling especially on the right. PHYSICAL EXAMINATION: PATIENT'S NAME: CARLITA [facility] AGE: 89 Y [address] ROOM: [address] [place] [id number] LOCATION: GPCU ADMIT DATE: 09/19/2016 ER/Outpatient Report DISCHARGE DATE: FAMILY PHYSICIAN: Manan Negron MD ATTENDING PHYSICIAN: Manan Negron VITAL SIGNS: On exam his blood pressure was 129/59, he had a temperature of a 100.9, his respiratory rate was 18, pulse 114, his O2 sats 98%. GENERAL APPEARANCE: Elderly male. Appeared mildly confused. HEAD: Normal male balding pattern. EYES: PERRL. No icterus. NOSE: Septum midline. MOUTH: Teeth appears to be in somewhat poor condition. Mouth and tongue dry. NECK: Still somewhat tender, somewhat posterior. No adenopathy present. LUNGS: Breath sounds were clear, but diminished. HEART: Tones distant. No definite murmur was noted. ABDOMEN: Appeared soft and nontender. EXTREMITIES: Had swelling of dorsal right wrist, very tender. The left wrist also was very tender, but not swollen. Had good radial pulses bilaterally. LABORATORY DATA AND X-RAYS: CMS sodium was low 133. His glucose high at 117. Calcium low at 7.6. Creatinine high at 2.2. CRP elevated at 15.6. CBC is elevated at 22.7, hemoglobin 11.4. His ANC were 18.5. White count was elevated from yesterday, was at 16.3, lactate was 2.6. Uric acid 6.7. Procalcitonin was less than 0.48. Sedimentation rate elevated at 81. Chest x-ray, showed no acute changes since yesterday. Dr. Brasher did aspirate his right wrist and there was no presence of crystals, he did have elevated white cells, mostly were neutrophils. Culture was pending. Urine is still pending. ASSESSMENT: 1. Sepsis with joint involvement. 2. Coronary artery disease with recent stent placement. 3. Dehydration. PLAN: We did talk to Dr. Negron who agreed to admit the patient. IV fluids were started here in the emergency room. He was given an initial dose of Zosyn 4.5 mg and vancomycin was ordered at 150 mg. STORM DESHPANDE FOR ELICEO BRASHER, DO PARTIDA/abelino /[id number] d: 09/20/163 t: 09/27/162112, OUTPATIENT REPORT
--- NOTE | ~2016-09-19 | DS ---
PATIENT'S NAME: TOBI SORTO [facility] AGE: 89 Y [address] ROOM: [address] [place], [place] [address] LOCATION: GPCU ADMIT DATE: 09/20/2016 Discharge Summary DISCHARGE DATE: 09/24/2016 FAMILY PHYSICIAN: Karan Negron MD ATTENDING PHYSICIAN: Karan Negron [facility]: Tobi Sorto is an 89-year-old gentleman, whose about 5 or 6 years ago. He entered the hospital on Tuesday morning with severe pain and swelling in both of his wrists. He had been in the emergency room the day before with pain in his neck. The patient fell on entering the hospital, and he was wheeled to the emergency room in the wheelchair where he was evaluated and indeed the hands were extremely swollen. Dr. Brasher saw him and aspirated his wrist. No crystals were found, but it was noted that he had more than ample number of white cells. The patient was admitted and appropriate pain medication was instituted with tramadol, Tylenol. Originally, IV fluids were started and antibiotics were started because we were concerned about whether or not he perhaps had septic arthritis or whether it was a sepsis type picture possibly from the urinary system where he would have joint discomfort. However, we failed to grow anything out on blood cultures. His initial temperature over 100 came down. When we began to treat his hands with IV Decadron, he began to improve. His uric acid was 6.7. Of course we had some abnormalities with his electrolytes that were addressed with IV fluids and rectified. Over 2 or 3 days Tobi gradually improved a great deal with his hand pain. Originally, he was unable to eat and could not stand it even if anybody elevated the bed because his hands hurt so bad. I have known Tobi a long time, and I am certain that was indeed the case because he is not one who usually complains about pain. He had one afternoon where he had an issue of discomfort in his lower abdomen. Whether or not this was his diverticulitis acting up I am not for sure. It had been a problem for him about 2 weeks ago, at which time we treated him with antibiotics. Infectious Disease was invited to see Tobi with their weekly visit to [facility] because I had finally arrived to the conclusion that I did not feel that it was probably infectious in etiology but perhaps just inflammatory even though the uric acid elevation was only 6.7. Infectious Disease came by, and they felt the same way, and they elected to discontinue all the antibiotics at that particular time, however, and visited with me about the fact that they felt the same way, that it was mostly inflammatory. The following afternoon when Tobi began to have abdominal pain again, I did restart the Cipro and Flagyl because I was concerned about whether or not there could possibly be exacerbation of his recent diverticulitis. At this time, Tobi is up and moving around, walking in the halls, feeding himself, dressing himself, back to his usual cantankerous personality, and we are going to allow him to go home. Due to his recent WI, I have been adamant PATIENT'S NAME: TOBI SORTO [facility] AGE: 89 Y [address] 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 This is certainly a patient who is pleasant to be around and to see on a regular basis. Tobi is going home to the care of his children of which there are 3 or 4 in the neighborhood who will watch him closely. We will follow up again in the office next week. KARAN NEGRON MD JDN/modl /[id number] d: 09/25/16 0509 t: 09/29/16 1429, DISCHARGE SUMMARY
--- NOTE | ~2016-09-19 | CON ---
PATIENT'S NAME: TOBI SORTO [facility] AGE: 89 Y [address] ROOM: [place] [id number] LOCATION: GPCU ADMIT DATE: 09/20/2016 Consultation DISCHARGE DATE: FAMILY PHYSICIAN: Manan Negron MD ATTENDING PHYSICIAN: Manan Negron DATE OF CONSULTATION: 09/22/2016 REFERRING PHYSICIAN: ANITA DEL VALLE MD INFECTIOUS DISEASE CONSULTATION REFERRING PHYSICIAN: Dr. Negron. REASON FOR EVALUATION: Possible infection. CHIEF COMPLAINT: The patient states that he is constipated. HISTORY OF PRESENT ILLNESS: Mr. Sorto is an 89-year-old man. He is a bit of a wandering historian, so it is a little bit difficult to get some story from him. He apparently recently had some diverticulitis and apparently a silent TN. He was treated with quinolone and Flagyl for this. Unfortunately, he developed some neck pain and some wrist pain. He states that he received some muscle relaxer and a steroid taper for this. He did start taking these. He states, however, he had difficulty walking after doing the muscle relaxer and ongoing pain, and so he presented to the hospital here. He apparently fell and could not get up. He was found to have a leukocytosis, and there was a report of fever. He was started on broad-spectrum antibiotics. He had a tap of his right wrist. He has not had any fevers since hospital admission. The only elevated temperature chart is in the ER with a temperature of 100.9. I am asked to evaluate. PAST MEDICAL HISTORY: Significant for some ulcer disease; apparently some colon cancer with some resection; some prostate cancer history, which sounds that he was treated with hormonal therapy. 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 FAMILY HISTORY: Parents are . SOCIAL HISTORY: PATIENT'S NAME: CARLITA [facility] AGE: 89 Y [address] ROOM: [address] [address] LOCATION: GPCU ADMIT DATE: 09/20/2016 Consultation DISCHARGE DATE: FAMILY PHYSICIAN: Manan Negron MD ATTENDING PHYSICIAN: Manan Negron Negative for drug use. 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 No alcohol abuse. REVIEW OF SYSTEMS: Pertinent positives include: 1. Gastrointestinal. The patient with some right-sided abdominal discomfort that is getting better after bowel movements. 2. Musculoskeletal. The patient's previous wrist discomfort has improved. This patient denies other symptoms. Remainder of complete review of systems is otherwise negative. PHYSICAL EXAMINATION: VITAL SIGNS: Temperature 36.3, heart rate 71, blood pressure 114/58. GENERAL: The patient is sitting up in chair, in no acute distress. HEENT: The patient is anicteric. No conjunctival lesions noted. Ears, nose, throat: The patient with some poor dentition. No thrush present. CARDIOVASCULAR: Regular rate and rhythm. RESPIRATORY: Breathing is easy and unlabored. LUNGS: Clear bilaterally. GASTROINTESTINAL: Abdomen is soft, normoactive bowel sounds are present. Nontender. LYMPHATICS: No cervical or epitrochlear lymphadenopathy. MUSCULOSKELETAL: The patient with some swelling about the right wrist. It appears chronic that he states it does not normally look this way. It is not warm. I do not feel any fluid. NEUROLOGIC: The patient is awake, alert, appropriate in conversation. LABORATORY STUDIES: Reviewed in the electronic medical record. ASSESSMENT AND RECOMMENDATIONS: 1. Leukocytosis. He still has a white blood cell count. He has, however, received multiple steroids. There is nothing to untrod on his differential other than a slightly high percentage of monocytes. It is difficult to interpret the white count at this time given the steroids that he has received. Wrist culture is without growth; however, he was on ciprofloxacin and Flagyl from the previous diverticulitis at this point. The appearance of the wrist at this point does not look like a septic joint. Diverticulitis should have been well treated at this point, so I do not think he needs antibiotics for that. We should not too much weight should be assessed to the elevated procalcitonin as he had some acute renal failure on presentation. At this time, we will stop antibiotics as there is no overwhelming evidence of infection at this point. Should he have return of fevers or new localizing symptoms, we can revisit. PATIENT'S NAME: TOBI SORTO [facility] AGE: 89 Y [address] ROOM: [place] [address] LOCATION: GPCU ADMIT DATE: 09/20/2016 Consultation DISCHARGE DATE: FAMILY PHYSICIAN: Manan Negron MD ATTENDING PHYSICIAN: Manan Negron Thank you for allowing me to participate in the care of Mr. Sorto. VERNA MORALES MD DSQ/modl /[id number] d: t: 09/22/162008, CONSULTATION REPORT
--- NOTE | ~2016-09-19 | HP ---
PATIENT'S NAME: TOBI SORTO [facility] AGE: 89 Y [address] 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 Essentially, he is Mr. 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 Has a history of prostate cancer and colon cancer, which he seems to deal with quite handily and not allow to slow him down much. The patient had a heart attack and myocardial infarction here about two weeks ago and at the same time, also had a bout of diverticulitis and he had a stent put in and was placed on Brilinta by Dr. Chao and basically it was a very silent ND. I started him on some Cipro and Flagyl, and within a couple of days, the GI symptoms seem to lina too. Recently, Tobi called me yesterday morning, said that he is having a lot of neck pain, ended up going to the ER, however, they treated him for muscle spasm in his neck with I think some Dilaudid and later sent him to the pharmacy for some Flexeril and tramadol and Tylenol as needed. His son called me this morning, on Tuesday morning, and stated that his hands were swollen, his wrists bilaterally, and he has a great deal of pain and said that they were going to take him to the ER. We discussed meeting him at the office and I thought we are going to meet him at the office and I said the west door. They got mixed up, went to the west door of the hospital where evidently Tobi got out of the pickup and stumbled and fell to the ground, was unable to get up. At that time, his son called me again and I said if he was having that kind of problems, put him in a wheelchair and send him over to the ER, so that has what had transpired. Dr. Brasher who saw him yesterday was personnel officer, so I visited with him again about what had transpired in the last 24 hours since Tobi was in there. They worked Tobi up and found out that he had an infection. I think Dr. Brasher was concerned about his risk and I think aspirated his wrist to see what the joint fluid was like and my understanding was there was some white cells in the joint fluid. Obvious with the elevated temperature and the procalcitonin lactate, white count of 22,000, big left shift, that Tobi needed to be admitted to the hospital. So, they gave him some Zosyn and vancomycin down in the ER after blood cultures, x-rayed appropriate injured areas, and called me about admitting him, which I did do. I thought personally his mental capabilities were quite good. For his stated PATIENT'S NAME: TOBI SORTO [facility] AGE: 89 Y [address] ROOM: [address] [address] [facility] AD[facility] DATE: 09/19/2016 History & Physical DISCHARGE DATE: FAMILY PHYSICIAN: Manan Negron MD ATTENDING PHYSICIAN: Manan Negron age, I thought he seemed to be intact neurologically and psychologically and mentally. Seemed to know where he was at, what was going on, answered questions appropriately and as usual gave me as bad a time as he could get away with. The patient did not relate any cough or sore throat. Said that short of breath when he goes to move. PAST MEDICAL HISTORY: He has a past history of peptic ulcer disease and I placed on Protonix. Also, the patient is recovering from diverticulitis, currently finishing up his medications. MEDICATIONS: As per the chart. They have recently changed a little bit after his ND and stenting procedure. I did elect to add some diuretics the last couple of days because of the increased shortness of breath, inability to get around, and also concerned about rising BNP. Tobi was to come into the office in the morning, so we filled all his medications as per chart and we will follow along with that. Tobi's , I am going to say about six or eight years ago. I think his nutrition is medium to poor, probably not like when his was cooking. 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 It has been a great deal of fun to work with him over the years. PHYSICAL EXAMINATION: GENERAL: At this time, Tobi is admitted. I saw him shortly after he arrived on the floor. VITAL SIGNS: Temperature was 102, pulse rate was 90, blood pressure was 110/80, oxygenation was reasonable. He is lying on his back on bed, is very pale, somewhat weak, although as usual rapid conversation, it is very difficult to understand, he kind of mumbles and is difficult to understand. His dentition is exceptionally poor. HEAD: Inspection reveals a normocephalic male with a balding distribution of whitish diaz hair naturally. Ears: Tympanic membranes viewed. Eyes: Extraocular muscles intact. Eyes are somewhat sunken. Face is pale and dry. Tongue is dry. Nasal mucosa is appropriate. Carotids were palpable. Heart sounds were transmitted to the carotids. NECK: The patient does not appear to have any neck masses. CHEST: Normal excursion of his chest. Lung sounds appear to be reasonable and prevalent over all lung smyth. PATIENT'S NAME: TOBI SORTO [facility] AGE: 89 Y [address] ROOM: [place] [address] [facility] AD[facility] DATE: 09/19/2016 History & Physical DISCHARGE DATE: FAMILY PHYSICIAN: Manan Negron MD ATTENDING PHYSICIAN: Manan Negron HEART: Sounds were distant, irregular, possibly systolic murmur. There is no pain on chest compression. ABDOMEN: Examination of his abdomen appeared to be a little protuberant to me. Bowel sounds were present. The patient did not have a great amount of abdominal discomfort on exam. It is noted that the patient keeps his hands resting on his lower abdomen and both his wrists are severely swollen and somewhat more erythema present . I went to raise the head of his bed for his congestive failure type problems, maybe 10-15 degrees and he said even that motion caused pain in his hand. PELVIC AND RECTAL: Not performed. EXTREMITIES: Adequate peripheral circulation. His legs are dry and he moves all extremities. He said that his right knee hurts and he is unable to tell us whether that started before or after he fell going in the west door of the hospital or what was going on earlier in the day. Knee looked like it might be swollen a little bit, but there was no erythema there on his right knee and there were no signs of tenderness on palpation. We will get an x-ray of the right knee. IMPRESSION: Possible sepsis due to urinary tract infection, recent ND, congestive heart failure with rising BNP, elevated white count which I think goes along with possible septicemia and concern about urine. We will get a cath UA and see what his urine shows. Arthritic wrists with a great deal of pain, which I assume is acute arthritis perhaps secondary to the sepsis. Since the patient is on vanco and Zosyn, we want to back off on his Cipro and continue to give his Flagyl. For the patient's rising BNP and shortness of breath, we are going to have Dr. Chao check on him too and order an echo that will be done either before or after she is there. As usual, Tobi's attitude and spirits are great, and we will do everything we can to make him comfortable with analgesics and fluids. MD THADDEUS HENDRICKSON/abelino /[id number] D: [id number] T: [id number] HISTORY & PHYSICAL
--- NOTE | ~2016-09-19 | DS ---
PATIENT'S NAME: TOBI ZAZUETA [facility] AGE: 89 Y [address] ROOM: [address] [place], [place] [address] LOCATION: GPCU ADMIT DATE: 09/20/2016 Discharge Summary DISCHARGE DATE: 09/24/2016 FAMILY PHYSICIAN: Karan Negron MD ATTENDING PHYSICIAN: Karan Negron ADDENDUM: It was also noted that during this hospitalization, Tobi had been having some increasing shortness of breath a week prior to his admission and also being very tired, and I have been concerned about how he was progressing after his recent stenting procedure following his apparent silent TN that he suffered approximately 3 weeks ago, and during this hospitalization, Cardiology also visited him on a daily basis, and he was tuned up by the Cardiology folks. I see that they have started, I believe, lisinopril and also some carvedilol, and started Plavix as opposed to the Brilinta, and of course, they will follow up with him on an outpatient basis and as well I. KARAN NEGRON MD JDN/modl /[id number] d: 09/25/16 0439 t: 09/29/16 1426, DISCHARGE SUMMARY
--- NOTE | ~2016-09-19 | ER ---
PATIENT'S NAME: TOBI ZAZUETA [facility] AGE: 89 Y [address] ROOM: [address], [place] [address] LOCATION: GPCU ADMIT DATE: 09/20/2016 ER/Outpatient Report DISCHARGE DATE: 09/24/2016 FAMILY PHYSICIAN: Manan Negron MD ATTENDING PHYSICIAN: Manan Negron ADDENDUM: This is an attending addendum to Ty Menezes's note. Please see his note for chief complaint, history of present illness, past medical history, past surgical history, social history, allergies, medications, review of systems, and physical exam. I did see and evaluate the patient myself. I did discuss aspiration to right wrist for the presence of infection versus crystals. Risks and benefits are discussed with the patient. Both verbal and written consent were obtained. 1% lidocaine without epinephrine is used for local infiltration for anesthesia. An 18-gauge needle was used to aspirate approximately 1.5 mL of fluid, this is sent down to the lab for further evaluation. Please see Ty Menezes's dictation for the results of this. The patient did tolerate the procedure well without any issues. The patient will be admitted to the hospital under the care of Dr. Negron in stable condition. DO CORY JAUREGUI/modl /[id number] d: 09/28/16 0029 t: 09/28/16 1823, OUTPATIENT REPORT
[2016-09-19 12:00] LABS: BASOPHIL # 0.1 K/uL (0.0-0.2); BASOPHIL % 0.4 %; HEMATOCRIT 32.7 % (33.0-50.0); HEMOGLOBIN 11.4 g/dL (11.0-16.0); IMMATURE GRANULOCYTE # 0.2 K/uL (0.0-0.3); IMMATURE GRANULOCYTE % 0.8 %; LYMPHOCYTE # 2.1 K/uL (0.8-4.0); LYMPHOCYTE % 9.2 %; MCH 28.4 pg (27.0-34.0); MCHC 34.9 gm/dL (32.0-36.5); MCV 81.3 fl (83.0-98.0); MONOCYTE # 1.8 K/uL (0.0-1.0); MONOCYTE % 7.9 %; MPV 8.5 fl (9.4-12.4); NEUTROPHIL # (ANC) 18.5 K/uL (1.4-9.0); NEUTROPHIL % 81.7 %; NRBC % 0 /100WBC (0-0.00); PLATELET COUNT 441 K/uL (150-450); RBC 4.02 M/uL (3.50-5.50); RDW-CV 15.9 % (11.9-14.6)
[2016-09-19 12:03] LABS: WBC 22.7 K/uL (4.0-11.0)
[2016-09-19 12:18] LABS: ALBUMIN 2.7 gm/dL (3.5-5.0); ANION GAP 15.9 (10.0-19.0); CALCIUM 7.6 mg/dL (8.5-10.5); POTASSIUM 3.9 mMol/L (3.7-5.1)
[2016-09-19 12:19] LABS: CREATININE 2.2 mg/dL (0.6-1.3); TOTAL BILIRUBIN 0.7 mg/dL (0.0-1.5)
[2016-09-19 17:51] LABS: BILIRUBIN URINE NEGATIVE (NEGATIVE); BLOOD URINE NEGATIVE /UL (NEGATIVE); COLOR URINE YELLOW (YELLOW); GLUCOSE URINE NEGATIVE (NEGATIVE); KETONE URINE NEGATIVE (NEGATIVE); LEUKOCYTES URINE 25 /UL (NEGATIVE); NITRITE URINE NEGATIVE (NEGATIVE); PH URINE 6.5 (4.0-8.0); PROTEIN URINE NEGATIVE (NEGATIVE); TURBIDITY URINE CLEAR (CLEAR); UROBILINOGEN URINE NORMAL (NORMAL)
[2016-09-19 18:07] LABS: BACTERIA URINE NEGATIVE (NEGATIVE); EPITHELIAL URINE RARE #/HPF (NEGATIVE); WBC URINE 0-2 #/HPF (NEGATIVE)
--- NOTE | 2016-09-19 19:47 | NUR ---
PATIENT CAME TO ED VIA PRIVATE CAR FROM DR BAIRD'S OFFICE FOR C/O BILATERAL WRIST PAIN. RECENTLY IN ED ON 09/18 FOR NECK PAIN BUT DISMISSED HOME WITH PAIN MEDICATIONS. ALSO ON 09/09, HEART CATH WAS DONE WITH STENT PLACEMENT PER DR BRONSON WITH PATIENT DISMISSED 09/13 PER SON. ADMIT DIAGNOSIS OF CHF, SEPSIS WITH XRAYS OF BILATERAL WRISTS SHOWING NO FRACTURES. RIGHT WRIST ASPIRATED IN ED WITH BAND-AID INTACT. LIVES AT HOME ALONE WITH SON LIVING CLOSEBY. PIV TO L) FA WITH 2ND LITER OF IVF INFUSING. BROUGHT TO PCU VIA CART BY RN AND NURSE AIDE AT 1710.
--- NOTE | 2016-09-19 19:51 | NUR ---
Significant Event: INITIAL VS: 119/59-83, HR 96, TEMP 97.9 ORAL, 90% SATS WITH 2L/NC, RR 20. C/O PAIN TO BILATERAL WRISTS WITH FLEXERIL AND TYLENOL GIVEN AROUND 1900. XRAY OF RIGHT KNEE AT BEDSIDE FOR C/O PAIN. 1/2NS AT 60ML/HR INITIATED VIA L) POST FA PIV WITH INITIAL DOSE OF ZOSYN, VANCO, AND FLAGYL STARTED ON FLOOR. A/O X3 BUT FORGETFUL AT TIMES. CLEAR UPPER LUNG SOUNDS WITH FINE CRACKLES HEARD TO BILATERAL BASES. SCATTERED BRUISING TO BILATERAL ARMS. 2+ EDEMA TO BLE. UP WITH ASSISTANCE ONLY. EXIT ALARMS ON AT ALL TIMES. LAST BM 09/18/16. OVIEDO PLACED AT BEDSIDE AT 1740 WITH UA, C&S SENT TO LAB. CLEAR, YELLOW UOP. Follow up: CONT IV ATB AND MEDICATION FOR PAIN MANAGEMENT. EXIT ALARMS ON AT ALL TIMES.
[2016-09-19] MEDS ORDERED: FLEXERIL10 MG (21:54)
[2016-09-19] MEDS ORDERED: ULTRAM50 MG PO (21:55)
[2016-09-19] MEDS ORDERED: DYAZIDE 37.5-21 EACH (21:57)
--- NOTE | 2016-09-20 04:21 | NUR ---
Significant Event: Patient is alert and oriented x 3. Forgetful. Mumbles. VSS on RA. HRs in the 70s-80s. SBPs in the 90s-1 teens. Afebrile. Up with 2 assist and gaitbelt to bedside commode. Givens intact. 3000 mls out this shift. Denies any pain without movement, pain to right knee if ambulating. Left forearm IV with 1/2 NS running at 60 ml/hr. Receiving intermittent IV antibiotics. On soft diet. Patient is cooperative with cares. Follow up: ECHO this am. Cardiology consult this am.
[2016-09-20 05:12] LABS: BASOPHIL # 0.1 K/uL (0.0-0.2); BASOPHIL % 0.3 %; EOSINOPHIL # 0.1 K/uL (0.0-0.5); EOSINOPHIL % 0.3 %; HEMATOCRIT 29.1 % (33.0-50.0); HEMOGLOBIN 10.1 g/dL (11.0-16.0); IMMATURE GRANULOCYTE # 0.2 K/uL (0.0-0.3); IMMATURE GRANULOCYTE % 0.7 %; LYMPHOCYTE % 8.4 %; MCH 28.6 pg (27.0-34.0); MCHC 34.7 gm/dL (32.0-36.5); MCV 82.4 fl (83.0-98.0); MONOCYTE # 1.7 K/uL (0.0-1.0); MONOCYTE % 7.1 %; MPV 8.8 fl (9.4-12.4); NEUTROPHIL # (ANC) 19.9 K/uL (1.4-9.0); NEUTROPHIL % 83.2 %; NRBC % 0 /100WBC (0-0.00); PLATELET COUNT 377 K/uL (150-450); RBC 3.53 M/uL (3.50-5.50); RDW-CV 16.2 % (11.9-14.6)
[2016-09-20 05:14] LABS: WBC 23.9 K/uL (4.0-11.0)
[2016-09-20 05:32] LABS: ALBUMIN 2.2 gm/dL (3.5-5.0); ALK PHOS 41 IU/L (33-138); ANION GAP 13.4 (10.0-19.0); AST 13 IU/L (10-40); BLOOD UREA NITROGEN 17 mg/dL (6-24); CHLORIDE 100 mMol/L (96-110); CO2 22 mMol/L (22-32); CREATININE 1.5 mg/dL (0.6-1.3); POTASSIUM 3.4 mMol/L (3.7-5.1); SODIUM 132 mMol/L (135-145); TOTAL BILIRUBIN 0.6 mg/dL (0.0-1.5); TOTAL PROTEIN 5.7 g/dL (6.0-8.4)
[2016-09-20 05:33] LABS: ALT < 10 IU/L (12-78); CALCIUM 7.3 mg/dL (8.5-10.5); ESTIMATED GFR (MDRD EQUATION) 44
--- NOTE | 2016-09-20 13:51 | NUR ---
(-)MST; WT IS UP FROM PREVIOUS ADMIT. WILL ASSIST NEEDED
--- NOTE | 2016-09-20 14:36 | NUR ---
Introduced self and role of care management to patient. He [place] by himself [place] [address]. He states that he is able to do all his own ADl's. He has lots of family that assist as needed. He plans on returning home on discharge. He denies any needs at this time. Will continue to follow.
--- NOTE | 2016-09-20 16:09 | NUR ---
Patient is A&Ox3 but forgetful at times. Mumbles words. VSS on RA. Afebrile. Gait not observed this shift. Q2 repositioning. Givens patent 1749 output clear, yellow urine. complaints of pain in wrist, R) knee and R) ankle throughout shift. PRN ultram and flexeril given for pain relief. rates now 7 out of 10 pain without any movement. Rotating warm and cool packs and icy hot for joint pain relief. Cooperative with cares.
--- NOTE | 2016-09-20 16:22 | NUR ---
1607 PROCEDURE DONE. 100 MG PROPOFOL USED. PT RESTS QUIETLY WITH EYES CLOSED
--- NOTE | 2016-09-20 17:37 | NUR ---
1645 EATS ICE. DENIES ANY C/O
[2016-09-21 04:42] LABS: BASOPHIL % 0.1 %; HEMOGLOBIN 10.9 g/dL (11.0-16.0); IMMATURE GRANULOCYTE # 0.2 K/uL (0.0-0.3); IMMATURE GRANULOCYTE % 0.8 %; LYMPHOCYTE # 1.2 K/uL (0.8-4.0); MCH 28.3 pg (27.0-34.0); MCHC 35.2 gm/dL (32.0-36.5); MCV 80.5 fl (83.0-98.0); MONOCYTE # 1.2 K/uL (0.0-1.0); MPV 9.2 fl (9.4-12.4); NEUTROPHIL # (ANC) 20.6 K/uL (1.4-9.0); NEUTROPHIL % 89.1 %; NRBC % 0 /100WBC (0-0.00); RBC 3.85 M/uL (3.50-5.50)
[2016-09-21 04:43] LABS: PLATELET COUNT 471 K/uL (150-450); WBC 23.2 K/uL (4.0-11.0)
[2016-09-21 04:58] LABS: ALBUMIN 2.1 gm/dL (3.5-5.0); ALK PHOS 46 IU/L (33-138); ANION GAP 11.9 (10.0-19.0); AST 13 IU/L (10-40); BLOOD UREA NITROGEN 19 mg/dL (6-24); CALCIUM 7.5 mg/dL (8.5-10.5); CHLORIDE 101 mMol/L (96-110); CO2 25 mMol/L (22-32); CREATININE 1.4 mg/dL (0.6-1.3); ESTIMATED GFR (MDRD EQUATION) 48; POTASSIUM 3.9 mMol/L (3.7-5.1); SODIUM 134 mMol/L (135-145); TOTAL PROTEIN 6.3 g/dL (6.0-8.4)
[2016-09-21 05:02] LABS: ALT < 10 IU/L (12-78); TOTAL BILIRUBIN 0.4 mg/dL (0.0-1.5)
--- NOTE | 2016-09-21 05:25 | NUR ---
Significant Event: TRAMADOL GIVEN X1 FOR KNEE, WRIST AND ANKLE PAIN. PAIN WAS TOLERABLE THE REST OF THE NIGHT. DR. SCHRADER NOTIFIED OF DECREASED BP WITH IT BEING IN THE 70s/40s. HE ORDERED A DOPAMINE GTT TO BE STARTED AT 3MCG/KG/MIN. HE WAS TITRATED UP TO 5 FOR A SHORT TIME BUT THEN WAS TURNED DOWN TO 4 MCG AND LEFT THERE THE REST OF THE NIGHT. THE OVIEDO HAS BEEN PATENT WITH 1975 ML OF UO. O2 WAS ALSO TITRATED UP TO 2L WHILE ASLEEP. SPEECH REMAINS MUMBLED AND DIFFICULT TO UNDERSTAND. Follow up:
--- NOTE | 2016-09-21 13:29 | NUR ---
Called and updated Oswaldo at [facility] in [place] of patient status.
--- NOTE | 2016-09-21 16:10 | NUR ---
patient is A&Ox3. Mumbles but speech clears as the day goes on. More awake this shift. Gets up to chair with 2 assist and uses gait belt and walker. tolerates activity fair. SOB with activity. On 2mcg/kg/min of dopamine to keep BP over 100 systolic. on r/a. some crackles in the bases of lungs but otherwise clear. BP ranges from 80-100 systolic. MAP remains above 60. calm and cooperative with cares. no BM this shift. Started on Senna per Dr. Negron. jimenez intact with good output. to con't with poc.
--- NOTE | 2016-09-22 04:47 | NUR ---
Significant Event: A/0X3. RESTED IN BED ALL OF SHIFT. TURNS SELF. AFEBRILE. VSS ON RA. DENIES PAIN. IV TO L) ANTERIOR FA HAS DOPAMINE RUNNING AT 2 MCG/KG/MIN AND NS @ TKO. IV TO L) POSTERIOR FA SL. CONTINUE WITH PO/IV ANTIBIOTICS. ID TO SEE PATIENT TODAY. OVIEDO PRESENT WITH 1850 MLS OUT. NO BM THIS SHIFT. GAVE SENNA AND PRUINE JUICE. PATIENT IS PASSING ALOT MORE GAS THIS SHIFT. Follow up: CONTINUE WITH PLAN OF CARE.
[2016-09-22 04:58] LABS: BASOPHIL % 0.1 %; HEMOGLOBIN 10.1 g/dL (11.0-16.0); IMMATURE GRANULOCYTE # 0.1 K/uL (0.0-0.3); IMMATURE GRANULOCYTE % 0.7 %; LYMPHOCYTE % 4.8 %; MCH 28.1 pg (27.0-34.0); MCHC 34.8 gm/dL (32.0-36.5); MCV 80.6 fl (83.0-98.0); MONOCYTE # 0.6 K/uL (0.0-1.0); MONOCYTE % 2.8 %; MPV 8.7 fl (9.4-12.4); NEUTROPHIL # (ANC) 19.1 K/uL (1.4-9.0); NEUTROPHIL % 91.6 %; NRBC % 0 /100WBC (0-0.00); PLATELET COUNT 433 K/uL (150-450); RDW-CV 16.1 % (11.9-14.6)
[2016-09-22 05:00] LABS: WBC 20.8 K/uL (4.0-11.0)
[2016-09-22 05:13] LABS: ALK PHOS 38 IU/L (33-138); ALT 11 IU/L (12-78); ANION GAP 11.5 (10.0-19.0); AST 15 IU/L (10-40); BLOOD UREA NITROGEN 27 mg/dL (6-24); CALCIUM 7.5 mg/dL (8.5-10.5); CHLORIDE 105 mMol/L (96-110); CO2 23 mMol/L (22-32); POTASSIUM 4.5 mMol/L (3.7-5.1); SODIUM 135 mMol/L (135-145); TOTAL PROTEIN 5.8 g/dL (6.0-8.4)
[2016-09-22 05:14] LABS: ALBUMIN 1.9 gm/dL (3.5-5.0); ESTIMATED GFR (MDRD EQUATION) > 60; TOTAL BILIRUBIN 0.3 mg/dL (0.0-1.5)
--- NOTE | 2016-09-22 15:34 | NUR ---
Significant Event:VSS.RA.DOPAMINE DC'D THIS AM.BP REMAINS STABLE. ID CONSULT. ANTIBIOTICS DC'D.AMBULATED IN HALLSX2 WITH PHYSICAL THERAPY. 1 ASSIST+WALKER. REFUSES ANY NEEDS FOR NH OR HHC.OVIEDO TO DD, PATENT.PROBABLY OK TO DC OVIEDO IN AM? VERY TALKATIVE, AND PLEASANT, BUT VERY HARD TO UNDERSTAND AT TIMES. PATIENT DOES MUMBLE A LOT. Follow up:WILL CONTINUE TO MONITOR PER PLAN OF CARE.
--- NOTE | 2016-09-22 15:46 | NUR ---
Social visit with patient today. We discussed his discharge plans. He is still planning on returning home. I did give him the option of a Medicare skilled stay. This is not an option for him. He is adement that he will return home. I did offer to have home health follow on discharge. He states that he has HHC before and is willing to have them come out to his home again. Face to face placed on chart. He wants the same HHC company he had the last andressa. I did look in his record and he had [facility]. Will set up HHC when patient is closer to discharge. Will continue to follow.
--- NOTE | 2016-09-23 03:20 | NUR ---
Significant Event: A/0X3. 1 ASSIST WITH WALKER/GB. TURNS SELF. AFEBRILE. VSS ON RA. IV TO L) FA X2 SL. GAVE PHENERGAN AROUND 1857 FOR R) LOWER QUADRANT PAIN. PATIENT STILL STATES IT IS SLIGHTLY TENDER TO PALPATE BUT NOT PAINFUL NO PRN PAIN MEDS GIVEN THIS SHIFT. STARTED PATIENT ON PO CIPRO AND FLAGYL THIS SHIFT. OVIEDO PRESENT WITH 1750 MLS OUT. NO BM THIS SHIFT. Follow up: CONTINUE WITH PLAN OF CARE.
[2016-09-23 05:20] LABS: BASOPHIL % 0.1 %; HEMATOCRIT 30.7 % (33.0-50.0); HEMOGLOBIN 10.6 g/dL (11.0-16.0); IMMATURE GRANULOCYTE # 0.1 K/uL (0.0-0.3); IMMATURE GRANULOCYTE % 0.8 %; LYMPHOCYTE # 1.3 K/uL (0.8-4.0); MCHC 34.5 gm/dL (32.0-36.5); MONOCYTE # 0.7 K/uL (0.0-1.0); MONOCYTE % 4.7 %; MPV 8.8 fl (9.4-12.4); NEUTROPHIL # (ANC) 12.6 K/uL (1.4-9.0); NEUTROPHIL % 85.4 %; NRBC % 0 /100WBC (0-0.00); PLATELET COUNT 445 K/uL (150-450); RBC 3.79 M/uL (3.50-5.50); RDW-CV 16.3 % (11.9-14.6); WBC 14.8 K/uL (4.0-11.0)
[2016-09-23 05:40] LABS: ALK PHOS 35 IU/L (33-138); ALT 12 IU/L (12-78); ANION GAP 11.3 (10.0-19.0); AST 15 IU/L (10-40); BLOOD UREA NITROGEN 26 mg/dL (6-24); CHLORIDE 105 mMol/L (96-110); CO2 24 mMol/L (22-32); CREATININE 0.8 mg/dL (0.6-1.3); ESTIMATED GFR (MDRD EQUATION) > 60; POTASSIUM 4.3 mMol/L (3.7-5.1); SODIUM 136 mMol/L (135-145); TOTAL PROTEIN 5.5 g/dL (6.0-8.4)
[2016-09-23 05:44] LABS: ALBUMIN 1.9 gm/dL (3.5-5.0); CALCIUM 7.3 mg/dL (8.5-10.5); TOTAL BILIRUBIN 0.4 mg/dL (0.0-1.5)
--- NOTE | 2016-09-23 15:03 | NUR ---
Called and spoke with Delaney with [facility] for referral. Referral information faxed. Will continue to follow.
--- NOTE | 2016-09-23 17:28 | NUR ---
Significant Event:VSS AFEBRILE. HR'S 60'S TO 70'S. BP'S 100'S TO 120'S. ON RA IN THE 90'S. DENIES PAIN TODAY. AMBULATED IN PAREDES X 2 WITH PT. HAD A COUPLE BM'S TODAY. DC'D OVIEDO AT 1420 AND PATIENT DID VOID. Follow up:
--- NOTE | 2016-09-24 04:10 | NUR ---
Significant Event: Patient A/Ox3. VSS on RA. Up SBA to bathroom with walker. Patient has slept well this shift. Good urine output. 3 BMs this shift. Follow up: Home today?
[2016-09-24 05:01] LABS: BASOPHIL % 0.1 %; EOSINOPHIL # 0.1 K/uL (0.0-0.5); EOSINOPHIL % 1.1 %; HEMATOCRIT 31.1 % (33.0-50.0); HEMOGLOBIN 10.6 g/dL (11.0-16.0); IMMATURE GRANULOCYTE # 0.1 K/uL (0.0-0.3); IMMATURE GRANULOCYTE % 1.1 %; LYMPHOCYTE # 2.8 K/uL (0.8-4.0); LYMPHOCYTE % 26.4 %; MCHC 34.1 gm/dL (32.0-36.5); MCV 82.1 fl (83.0-98.0); MONOCYTE % 9.6 %; MPV 9.2 fl (9.4-12.4); NEUTROPHIL # (ANC) 6.5 K/uL (1.4-9.0); NEUTROPHIL % 61.7 %; NRBC % 0 /100WBC (0-0.00); PLATELET COUNT 452 K/uL (150-450); RBC 3.79 M/uL (3.50-5.50); RDW-CV 16.4 % (11.9-14.6); WBC 10.5 K/uL (4.0-11.0)
[2016-09-24 05:21] LABS: ANION GAP 11.2 (10.0-19.0); POTASSIUM 4.2 mMol/L (3.7-5.1); TOTAL BILIRUBIN 0.4 mg/dL (0.0-1.5); TOTAL PROTEIN 5.6 g/dL (6.0-8.4)
[2016-09-24 05:22] LABS: CALCIUM 7.2 mg/dL (8.5-10.5)
[2016-09-24] MEDS ORDERED: COREG 3.1253.125 MG PO (09:49)
[2016-09-24] MEDS ORDERED: CELEBREX200 MG PO (09:50)
[2016-09-24] MEDS ORDERED: PLAVIX75 MG PO (09:52)
[2016-09-24] MEDS ORDERED: PRINIVIL (ZESTRI5 MG PO (09:57)
[2016-09-24] MEDS ORDERED: BENGAY/ICY HOT/30 GM TOP (10:09)
[2016-09-24] MEDS ORDERED: LASIX20 MG PO (10:18)
--- NOTE | 2016-09-24 13:27 | NUR ---
I did fax dc orders to [facility] and also called Delaney. WIll assist as needed.
== END 2016-09-24 10:50 | disposition home health service (06) | DRG 871 ==
LOC: GMED 11:03 → GPCU 15:47
PROVIDERS: Physician Assistant Medical; ADMIT Family Medicine
DX: A41.9 Sepsis, unspecified organism (principal); I50.23 Acute on chronic systolic (congestive) heart failure; I27.81 Cor pulmonale (chronic); C18.9 Malignant neoplasm of colon, unspecified; M00.9 Pyogenic arthritis, unspecified; N39.0 Urinary tract infection, site not specified; I11.0 Hypertensive heart disease with heart failure; I25.10 Atherosclerotic heart disease of native coronary artery without angina pectoris; J43.9 Emphysema, unspecified
CPT/HCPCS: C9113; J1100; J1170; J1265; J1940; J2001; J2543; J2550; J3370; J3480; J7030; J7040; J7050